=== PATIENT | female | born 1970 | race Caucasian/White ===

== ENCOUNTER 2020-09-27 16:27 | Outpatient (CLI) | payer BC, SELFPAY ==
--- NOTE | ~2020-09-27 | MM_ITS ---
EXAMINATION: MM screening [facility] BI w sandra HISTORY: Screening mammogram TECHNIQUE: Craniocaudal and mediolateral oblique 3-D tomosynthesis images were obtained and synthetic 2-D images were generated. CAD analysis was submitted and interpreted. COMPARISON: 08/27/2018 bilateral digital screening mammogram 01/29/2017 diagnostic left digital mammogram 02/02/2017 bilateral digital screening mammogram BREAST PARENCHYMAL COMPOSITION: There are scattered areas of fibroglandular density. FINDINGS: There is no evidence of suspicious mass, calcification, or architectural distortion to sugg est malignancy in either breast. There has been no suspicious interval change. IMPRESSION: 1. No mammographic evidence of malignancy. 2. Recommend routine screening mammography in one year. BI-RADS Category 1: Negative Reviewed, dictated and finalized at location A. TESTER
== END 2020-09-27 16:28 | disposition home or self-care (01) ==
LOC: ANHIMG 16:31
PROVIDERS: PCP Family Medicine; Visit Provider Nurse Practitioner
DX: Z12.31 Encounter for screening mammogram for malignant neoplasm of breast (principal)
CPT/HCPCS: 77063; 77067

== ENCOUNTER 2021-07-26 00:26 | Day surgery (SDC) | payer BC, SELFPAY ==
[2021-07-16 10:56] VITALS: BMI 32.3
[2021-07-26 08:39] VITALS: BP 146/92; PULSE 90; RESP 20; TEMP 36.1; O2SAT 99; BMI 31.6
[2021-07-26] MEDS: LACTATED RINGERS 1,000 ML 150 ML IV CONT (08:49)
--- NOTE | 2021-07-26 08:51 | SUR.PREOP ---
pt asked to provide a urine sample for a test. pt refused. pt states she had a tubal ligation and ablation and is currently on her period and refuses to provide specimen. anesthesia aware.
--- NOTE | 2021-07-26 08:54 | WPDANESEPPF ---
Anes - Initial Pre Proc Eval Procedure: Operation Date: 07/26/21 09:30 Proposed Procedures p Screening Colonoscopy - Yong Winkler MD Date/Time: 07/26/21 08:54 Surgeon: Yong Winkler MD Pre Op Diagnosis: neoplasm screening, family hx colon CA Patient Data Age: 51 Gender: F Height: 1.68 m Weight: 88.9 kg Last Vital Signs Temp 36.1 C L 07/26/21 08:39 Pulse 90 07/26/21 08:39 Resp 20 07/26/21 08:39 BP 146/92 H 07/26/21 08:39 Pulse Ox 99 07/26/21 08:39 Allergies Allergy/AdvReac Type Severity Reaction Status Date / Time Sulfa (Sulfonamide Allergy Unknown Unknown Verified 07/26/21 08:38 Antibiotics) Home Medications Medication Instructions Recorded Confirmed Type diclofenac sodium 1 % topical gel 2 g TOPICAL BID #100 g 07/19/21 07/26/21 Rx meloxicam 15 mg tablet 15 mg PO DAILY #30 tablet 07/19/21 07/26/21 Rx Patient hx anesthesia problems: none Family hx anesthesia problems: none Results Review: All pre-operative results and documents have been reviewed as part of the pre-operative evaluation. [facility] Past Medical History Medical History (Updated 07/26/21 @ 08:55 by Tomasz Tamayo MD) Dyslipidemia Family history of malignant neoplasm of colon Ganglion cyst Obesity Prediabetes Surgical History Surgical History (Updated 07/26/21 @ 08:55 by Tomasz Tamayo MD) History of tubal ligation Family History Family History Sibling Carcinoma of colon Other Diabetes mellitus Family history of multiple sclerosis Family history of rheumatoid arthritis Social History Social History Smoking status: Never smoker Alcohol intake: current Alcohol use details: 2-3 drinks per month Substance use: never Substance use type: does not use Living arrangements: with family Spiritual care concerns: No Anes - Eval Final PreProcedure Day of Procedure 07/26/21 08:54 Patient weight: obese Heart: regular rate and rhythm Lungs: clear to auscultation Airway: Mallampati scale class II Neurological: alert and oriented Last oral intake: >/= 8 hours ASA classification: II Emergent: no Anesthetic plan: proceed Anesthesia type and monitoring: general GIVS and standard monitoring Results Review: All pre-operative results and documents have been reviewed as part of the pre-operative evaluation. Informed Consent: The patient's anesthetic plan and its attendant risks and benefits were discussed with the patient/family/POA. Questions were solicited and answers provided to the satisfaction of the patient/family/POA.
--- NOTE | 2021-07-26 09:05 | WPDGICN ---
Assessment and Plan Assessment and plan (1) Family history of malignant neoplasm of colon: Code(s): Z80.0 - Family history of malignant neoplasm of digestive organs Status: Acute Assessment and Plan: patient has a family history of colon cancer in her brother and aunt in several cousins. Her father has had colon polyps. Plan is for patient has screening colonoscopy now and at least a 5 year intervals in the future. GI Consult Note Consult date/time: 07/26/21 09:05 HPI: Kendal Mulligan is a 51 year old female Presents for screening colonoscopy. Patient's current weight appetite bowel movements are normal. She denies abdominal pain. She has had no bleeding. Family history is significant her brother has colon cancer. Also an aunt and 2 cousins. Patient's father has had colon polyps. Patient presents today for neoplasia screening. Review of Systems Review of Systems: All systems reviewed & are unremarkable except as noted in HPI and below PMFSH Past Medical History Medical History (Updated 07/26/21 @ 08:55 by Tomasz Tamayo MD) Dyslipidemia Family history of malignant neoplasm of colon Ganglion cyst Obesity Prediabetes Surgical History Surgical History (Updated 07/26/21 @ 08:55 by Tomasz Tamayo MD) History of tubal ligation Family History Family History Sibling Carcinoma of colon Other Diabetes mellitus Family history of multiple sclerosis Family history of rheumatoid arthritis Social History Social History Smoking status: Never smoker Alcohol intake: current Alcohol use details: 2-3 drinks per month Substance use: never Substance use type: does not use Living arrangements: with family Spiritual care concerns: No Meds Home Medications and Allergies Home Medications Medication Instructions Recorded Confirmed Type diclofenac sodium 1 % topical gel 2 g TOPICAL BID #100 g 07/19/21 07/26/21 Rx meloxicam 15 mg tablet 15 mg PO DAILY #30 tablet 07/19/21 07/26/21 Rx Allergies Allergy/AdvReac Type Severity Reaction Status Date / Time Sulfa (Sulfonamide Allergy Unknown Unknown Verified 07/26/21 08:38 Antibiotics) Vital Signs Vital Signs - 24 hr 07/26/21 08:39 Temperature 97.0 F L Pulse Rate 90 Respiratory Rate 20 Blood Pressure 146/92 H Pulse Oximetry 99 Exam Narrative: Physical exam reveals patient to be alert. Vital signs stable. HEENT exam is unremarkable. Patient is anicteric. Lungs are clear to auscultation and percussion. Heart is without murmur or extra sounds. Abdominal exam bowel sounds are present soft nontender with no organomegaly. Digital external rectal exam is normal
[2021-07-26] MEDS: ONDANSETRON INJ 4 MG/2 ML VIAL IV PUSH (09:08)
[2021-07-26 09:30] VITALS: BP 122/80; PULSE 100; RESP 14; O2SAT 100
[2021-07-26 09:40] VITALS: BP 143/86; PULSE 88; RESP 18; O2SAT 100
[2021-07-26 09:46] VITALS: BP 140/92; PULSE 86; RESP 20; O2SAT 100
== END 2021-07-26 10:02 | disposition home or self-care (01) ==
PROVIDERS: PCP Family Medicine; Visit Provider Internal Medicine Gastroenterology
PROC: 0DJD8ZZ Inspection of Lower Intestinal Tract, Via Natural or Artificial Opening Endoscopic (ICD-10-PCS; CPT 45378; principal; 2021-07-26 09:30)
DX: Z12.11 Encounter for screening for malignant neoplasm of colon (principal); Z80.0 Family history of malignant neoplasm of digestive organs; K64.8 Other hemorrhoids; E78.5 Hyperlipidemia, unspecified; R73.03 Prediabetes; E66.9 Obesity, unspecified; Z68.31 Body mass index [BMI] 31.0-31.9, adult
CPT/HCPCS: 45378; J2405; J2704; J7120

== ENCOUNTER 2021-10-03 13:22 | Outpatient (CLI) | payer BC, SELFPAY ==
--- NOTE | ~2021-10-03 | MM_ITS ---
EXAMINATION: MM screening megha BI w sandra HISTORY: Screening TECHNIQUE: Craniocaudal and mediolateral oblique 3-D tomosynthesis images were obtained and synthetic 2-D images were generated. CAD analysis was submitted and interpreted. COMPARISON: Comparison to multiple prior studies sequentially, with oldest reviewed study dated 05/17. BREAST PARENCHYMAL COMPOSITION: There are scattered areas of fibroglandular density. FINDINGS: There is no evidence of suspicious mass, calcification, or architectural distortion to sugg est malignancy in either breast. There has been no suspicious interval change. IMPRESSION: 1. No mammographic evidence of malignancy. 2. Recommend routine screening mammography in one year. BI-RADS Category 1: Negative Reviewed, dictated and finalized at location A. ITTEE MEMBER
== END 2021-10-03 13:23 | disposition home or self-care (01) ==
LOC: ANHIMG 13:23
PROVIDERS: PCP Family Medicine; Visit Provider Obstetrics & Gynecology Gynecology
DX: Z12.31 Encounter for screening mammogram for malignant neoplasm of breast (principal)
CPT/HCPCS: 77063; 77067

== ENCOUNTER 2021-10-03 13:55 | Outpatient (CLI) | payer BC, SELFPAY ==
--- NOTE | ~2021-10-03 | MR_ITS ---
EXAMINATION: MR thoracic spine wo con EXAM DATE: 10/03/2021 16:08 INDICATION: M54.6 - Pain in thoracic spine TECHNIQUE: Multi-sequential, multiplanar MR images of the thoracic spine were obtained without contra st. Sagittal T1, T2, T2 fat saturation, axial T2 weighted images reviewed. There are no prior studie s for comparison. FINDINGS: There is mild to moderate thoracic facet arthropathy. There is mild thoracic disc disease. The thoracic neural foramen and central canal are widely patent. The spinal cord signal intensity and intrinsic morphology is normal. There are no suspicious marrow signal abnormalities. The vertebral b odies are aligned in the AP dimension. Paraspinal soft tissue is unremarkable. IMPRESSION: Mild to moderate thoracic facet arthropathy, mild disc disease. Reviewed, dictated and finalized at location G. HER DRESSER
== END 2021-10-03 13:56 | disposition home or self-care (01) ==
LOC: ANHIMG 14:04
PROVIDERS: PCP Family Medicine; Visit Provider Nurse Practitioner
DX: M54.6 Pain in thoracic spine (principal); M12.88 Other specific arthropathies, not elsewhere classified, other specified site; M51.84 Other intervertebral disc disorders, thoracic region
CPT/HCPCS: 72146

== ENCOUNTER 2022-04-23 08:39 | Outpatient (CLI) | payer BC, SELFPAY ==
[2022-04-23 18:57] LABS: Alanine Aminotransferase 14 U/L (6-35); Albumin Level 4.6 g/dL (3.5-5.1); Alkaline Phosphatase 85 U/L (38-126); Anion Gap 14 mmol/L (8-16); Aspartate Amino Transferase 27 U/L (14-36); Bilirubin,Total 0.5 mg/dL (0.2-1.3); Blood Urea Nitrogen 13 mg/dL (7-17); Calcium 9.1 mg/dL (8.4-10.2); Carbon Dioxide 26 mmol/L (22-30); Chloride 99 mmol/L (98-107); Cholesterol 238 mg/dL (0-200); Estimated Glomerular Filt Rate > 60; Glucose 83 mg/dL (65-110); HDL Direct 60 mg/dL; Potassium 4.2 mmol/L (3.4-5.0); Sodium 139 mmol/L (137-145); Triglycerides 85 mg/dL (<150)
[2022-04-23 19:07] LABS: LDL Cholesterol Direct 129 mg/dL
[2022-04-23 19:42] LABS: Basophils Percent Auto 0.5 % (0.2-1.2); Eosinophils Absolute Auto 0.1 K/mm3 (0-0.3); Eosinophils Percent Auto 1.6 % (0-4.4); Hematocrit 40.7 % (37.0-47.0); Hemoglobin 13.1 g/dL (12.0-15.0); Immature Granulocyte Absolute 0.01 K/mm3 (0.00-0.031); Immature Granulocyte Percent A 0.2 % (0-0.5); Lymphocytes Absolute Auto 0.81 K/mm3 (0.9-3.2); Lymphocytes Percent Auto 13.3 % (18.3-44.2); Mean Corpuscular HGB Conc 32.2 g/dl (32-36); Mean Corpuscular Hemoglobin 29.6 pg (26-34); Mean Corpuscular Volume 91.9 fl (80-100); Mean Platelet Volume 11.4 fl (7.4-10.4); Monocytes Absolute Auto 0.4 K/mm3 (0.1-0.6); Monocytes Percent Auto 6.6 % (2.6-8.5); Neutrophils Absolute Auto 4.7 K/mm3 (1.3-6.7); Neutrophils Percent Auto 77.8 % (45.5-73.1); Platelet Count Result 296 k/mm3 (150-375); Red Blood Count 4.43 M/mm3 (4.2-5.4); Red Cell Distribution Width 14.3 % (11.5-14.5); White Blood Count 6.1 K/mm3 (4.5-10.0)
[2022-04-23 19:59] LABS: Hemoglobin A1C 5.6 % (<5.7)
== END 2022-04-23 08:40 | disposition home or self-care (01) ==
LOC: ANHGOSHLAB 08:40
PROVIDERS: PCP Family Medicine; Visit Provider Nurse Practitioner
DX: E78.5 Hyperlipidemia, unspecified (principal); R73.03 Prediabetes
CPT/HCPCS: 36415; 80053; 80061; 83036; 85025

== ENCOUNTER 2023-03-05 15:48 | Outpatient (CLI) | payer BC, SELFPAY ==
--- NOTE | ~2023-03-05 | MM_ITS ---
EXAMINATION: MM screening [facility] BI w sandra HISTORY: Screening TECHNIQUE: Craniocaudal and mediolateral oblique 3-D tomosynthesis images were obtained and synthetic 2-D images were generated. CAD analysis was submitted and interpreted. COMPARISON: Comparison to multiple prior studies sequentially, with oldest reviewed study dated 05/17. BREAST PARENCHYMAL COMPOSITION: There are scattered areas of fibroglandular density. FINDINGS: There is no evidence of suspicious mass, calcification, or architectural distortion to sugg est malignancy in either breast. There has been no suspicious interval change. IMPRESSION: 1. No mammographic evidence of malignancy. 2. Recommend routine screening mammography in one year. BI-RADS Category 1: Negative Reviewed, dictated and finalized at location A.
== END 2023-03-05 15:49 | disposition home or self-care (01) ==
PROVIDERS: PCP Family Medicine; Visit Provider Nurse Practitioner
DX: Z12.31 Encounter for screening mammogram for malignant neoplasm of breast (principal)
CPT/HCPCS: 77063; 77067

== ENCOUNTER 2024-07-21 16:10 | Outpatient (CLI) | payer BC, SELFPAY ==
--- NOTE | ~2024-07-21 | MM_ITS ---
EXAMINATION: MM screening megha BI w sandra HISTORY: Screening TECHNIQUE: Craniocaudal and mediolateral oblique 3-D tomosynthesis images were obtained and synthetic 2-D images were generated. CAD analysis was submitted and interpreted. COMPARISON: Comparison to multiple prior studies sequentially, with oldest reviewed study dated 04/2017. BREAST PARENCHYMAL COMPOSITION: Not dense: There are scattered areas of fibroglandular density. FINDINGS: There is a new cluster of pleomorphic calcifications in the lower inner quadrant of the rig ht breast, anterior third. The left breast is stable without evidence for malignancy. IMPRESSION: 1. New cluster of pleomorphic right breast calcifications. 2. Magnification views are recommended. BI-RADS Category 0: Incomplete: Needs additional imaging evaluation. Reviewed, dictated and finalized at location B. OPERATOR
== END 2024-07-21 16:11 | disposition home or self-care (01) ==
PROVIDERS: PCP Family Medicine; Visit Provider Advanced Practice Midwife
DX: Z12.31 Encounter for screening mammogram for malignant neoplasm of breast (principal); R92.8 Other abnormal and inconclusive findings on diagnostic imaging of breast
CPT/HCPCS: 77063; 77067

== ENCOUNTER 2024-07-29 10:43 | Outpatient (CLI) | payer BC, SELFPAY ==
--- NOTE | ~2024-07-29 | MM_ITS ---
EXAMINATION: MM diagnostic megha RT w sandra HISTORY: Follow-up right breast calcifications TECHNIQUE: Additional 3-D tomosynthesis images of the right breast were performed and synthetic 2-D i mages were generated. CAD analysis was submitted and interpreted. COMPARISON: Comparison to multiple prior studies sequentially, with oldest reviewed study dated 08/27. BREAST PARENCHYMAL COMPOSITION: Not dense: There are scattered areas of fibroglandular density. FINDINGS: There is a cluster of indeterminate calcifications in the central medial aspect of the righ t breast which are likely benign. There are no suspicious masses or architectural distortion. IMPRESSION: 1. Probable benign cluster of right breast calcifications medial aspect of the right breast centrally . 2. Recommend 6 month follow-up diagnostic right mammogram BI-RADS category 3, probably benign findings. Reviewed, dictated and finalized at location B. OR QA AUTOMATION ENGINEER IMPRESSION: 1. Probable benign cluster of right breast calcifications medial aspect of the right breast centrally. 2. Recommend 6 month follow-up diagnostic right mammogram BI-RADS category 3, probably benign findings.
== END 2024-07-29 10:44 | disposition home or self-care (01) ==
LOC: ANHIMG 10:49
PROVIDERS: PCP Family Medicine; Visit Provider Obstetrics & Gynecology Gynecology
DX: N63.0 Unspecified lump in unspecified breast (principal); R92.8 Other abnormal and inconclusive findings on diagnostic imaging of breast
CPT/HCPCS: 77061; 77065; G0279

== ENCOUNTER 2025-02-01 10:46 | Outpatient (CLI) | payer BC, SELFPAY ==
--- NOTE | ~2025-02-01 | MM_ITS ---
EXAMINATION: MM diagnostic megha RT w sandra HISTORY: Follow-up right breast calcifications TECHNIQUE: Additional 3-D tomosynthesis images of the right breast were performed and synthetic 2-D i mages were generated. CAD analysis was submitted and interpreted. COMPARISON: Comparison to multiple prior studies sequentially, with oldest reviewed study dated 08/27. BREAST PARENCHYMAL COMPOSITION: Not dense: There are scattered areas of fibroglandular density. FINDINGS: There are increasing number and density of pleomorphic calcifications centered in the lower inner quadrant of the right breast, anterior-middle depth. There are no suspicious masses or archite ctural distortion. IMPRESSION: 1. Developing cluster of pleomorphic right breast calcifications, lower inner quadrant, anterior-midd le depth. 2. Stereotactic right breast biopsy recommended. BI-RADS category 4, suspicious findings. Reviewed, dictated and finalized at location A. IMPRESSION: 1. Developing cluster of pleomorphic right breast calcifications, lower inner q uadrant, anterior-middle depth. 2. Stereotactic right breast biopsy recommended. BI-RADS category 4, suspicious findings.
--- OUTSIDE RECORDS SUMMARY | 2025-02-01 12:31 | XMS_ITS | Clinical Summary ---
Author Organization [facility] Address [address] [place] [address] Care Team Providers Care Lobster Man Name Role Phone Ashely Lopez NP Primary Care Provider [phone] Allergies Active Allergy Reactions Criticality Noted Date Comments Sulfanilamide Hives Medium Medications cetirizine (ZyrTEC) 10 mg tablet Take 10 mg by mouth daily Active acyclovir (ZOVIRAX) 200 mg capsule Take by mouth daily as needed Active cefadroxil (DURICEF) 500 mg capsule Take 1 capsule (500 mg total) by mouth 2 (two) times a day 14 capsule 2 Active HYDROcodone-acetami nophen (NORCO) 5-325 mg per tabletIndications:P ain Take 1 tablet by mouth every 6 (six) hours as needed for pain 30 tablet 2 Active ondansetron ODT (ZOFRAN-ODT) 4 mg disintegrating tablet Take 1 tablet (4 mg total) by mouth every 8 (eight) hours as needed for nausea or vomiting 20 tablet 1 2 Active Surgical History Surgery Date Site/Laterality Comments TUBAL LIGATION 2003 Bilateral tubal ligation ABLATION uterine in office under local GANGLION CYST EXCISION Left wrist Medical History Medical History Date Comments Hx Other Medical 2011 Stress Fracture Left hip PONV (postoperative nausea and vomiting) Motion sickness Allergic rhinitis Chronic pain disorder neck and s houlders Herpes Family History Medical History Relation Name Comments Diabetes Other Family history of Diabetes mellitus; Multiple sclerosis Other Family hi story of Multiple sclerosis; Rheum arthritis Other Family histo ry of Rheumatoid arthritis; Relation Name Status Comments Other Social History Tobacco Use Types Packs/Day Years Used Date Smoking Tobacco: Never Tobacco Cessation:Counseling Given: Not Answered AUDIT-C Answer Date Recorded Q1: How often do you have a drink containing alc ohol? Monthly or less 05/02/2022 Q2: How many drinks containi ng alcohol do you have on a typical day when you are drinking? 1 or 2 05/02/2022 Q3: How often do you have si x or more drinks on one occasion? Never 05/02/2022 Comments Unknown Sex and Gender Information Value Date Recorded Sex Assigned at Not on file Legal Sex Female 11:01 AM [employer] Gender Identity Female 05/05/2022 7:41 AM CDT Sexual Orientation Not on file Obstetrics History Last Filed Vital Signs Vital Sign Reading Time Taken Comments Blood Pressure 123/88 05/08/2022 3:15 PM CDT Pulse 80 05/08/2022 3:15 PM CDT Temperature 36.4 C (97.5 F) 05/08/2022 1:30 PM CDT Respiratory Rate 16 05/08/2022 3:00 PM CDT Oxygen Saturation 90% 05/08/2022 3:15 PM CDT Inhaled Oxygen Concentration - - Weight 80.3 kg (177 lb) 05/08/2022 7:00 AM CDT Height 167.6 cm (5' 6) 05/08/2022 7:00 AM CDT Body Mass Index 28.57 05/08/2022 7:00 AM CDT Plan of Treatment Health Maintenance Due Date Last Done Comments Breast Cancer Screening-Mammogram 1972 Cervical Cancer Screening 1972 Colon Cancer Screening-Colonoscopy 1972 Depression Screening 1972 Hepatitis C Screening 1972 DTaP/Tdap/Td Vaccine (1 - Tdap) 1983 Hepatitis B Screening 1990 Regular Well Visit/Exam 18-64 1990 Zoster Vaccine (1 of 2) 2022 Covid-19 Vaccine (2 - 2023-2 5 season) 2024 10/21/2020 Influenza Vaccine (Season Ended) 2025 Pneumococcal vaccine <65 Aged Out No longer eligible based on patient's age to complete this topic [place] [employer] [employer] Care Teams Lobster Man Relationship Specialty Start Date End Date Ashely Lopez NP PCP - General Nurse Practitioner 04/25/22
--- OUTSIDE RECORDS SUMMARY | 2025-02-01 12:31 | XMS_ITS | Continuity of Care Document ---
Author Organization [facility] Address [address] [place] [address] Phone Care Team Providers Care Ceiling Installer Name Role Phone Olive Calero NP Unavailable Unavailable Allergies, Adverse Reactions, Alerts Substance Reaction Status Criticality Penicillins Trouble Breathing Active No Informa tion Medications Medication Instructions Dosage Effective Dates (start - stop) Status Comments Strattera 40 mg capsule take 1 capsule b y oral route every day in the morning 40 MG - Active Xanax 1 mg tablet take 1 tablet by ora l route nightly - Active trazodone 150 mg tablet take 1 tablet by oral route every bedtime after meals 150 MG - Active omeprazole 40 mg capsule,delayed release take 1 capsule by oral route 2 times every day before a meal 40 MG - Active cyclobenzaprine 10 mg tablet take 1 (10MG) by Oral route 3 times every day 10 MG - Active [place] Thyroid 90 mg tablet take 1 tablet by oral route every day 90 MG - Active fluconazole 150 mg tablet take 1 tablet by oral route once every 3 days - Active olmesartan 20 mg tablet take 1 tablet by oral route every day 20 MG - Active VITAMIN D (ERGOCALCIFE 1.25 MG CAPS TAKE 1 CAPSULE BY MOUTH ONCE WEEKLY - Active Procedures Procedure Date Office Or Out Patient E/M Est- Low Foot Insert Molded To Patient Foot Foot Insert Molded To Patient Foot Office Or Out Patient E/M Est- Low Office Or Out Patient E&M New - Low Xray, Foot, Complete, 3 Views Office Or Out Patient E/M Est - High Mar Visit Complexity Diastolic BP 80-89mm Hg Systolic BP < 130mm Hg Gonadotropin; Follicle Stim Ho Estadiol;free Dir Danny Routine Venipunct/finger/heel Gonadotropin; Luteinizing Horm Thyroxine; Free Lipid Panel Thyroid Stim Hormone Triiodothyronine T3; Free Progesterone E&M Level Telemedicine- Moderate 2023 Destruct Malignant Lesion 1.1 To 2.0cm J Office Or Out Patient E&M New - Moderate Diastolic BP 90mm Hg Systolic BP 130 To 139mm Hg Agt-dna/rna; Gardnerella Vag-d Mellissa Urinalysis Dipstick tablet;wo Micro TRICHOMONAS VAGIN, DIR PROBE E & M Establish Patient High Thyroid Stim Hormone Routine Venipunct/finger/heel Triiodothyronine T3; Free Thyroxine; Free Office Or Out Patient E&M Est Moderate D Diastolic BP < 80mm Hg Systolic BP < 130mm Hg Brief behavioral assessment w/scoring Oc Office Or Out Patient E&M Est - High May Diastolic BP < 80mm Hg Systolic BP < 130mm Hg Routine Venipunct/finger/heel 2 General Health Panel Thyroxine; Free Outside Lab Triiodothyronine T3; Free Outside Lab Office Or Out Patient E&M Est- Moderate- high Outside Lab Office Or Out Patient E&M Est - Low Tangential Biopsy Skin Single 2 Tangential Biopsy Skin Ea Add 2 Level Iv-surg Path Gross/micro Office Or Out Patient E&M New - Moderate Xray, Chest 2 Views Office Or Out Patient E&M Est Moderate A Diastolic BP 90mm Hg Systolic BP 130 To 139mm Hg Preven Meds E&m Estab Pt; 40-64 Yrs Office Or Out Patient E&M Est Moderate A Diastolic BP 80-89mm Hg Systolic BP < 130mm Hg C-reactv Protein; High Sensiti 22 Amylase Routine Venipunct/finger/heel 2 Triiodothyronine T3; Free Cult Bact Urin; Id Add Samir/ki Outside Lab Lipase Urinalysis Dipstick Auto W/o Micro Nov- Lipid Panel General Health Panel Outside Lab Thyroxine; Free Calcifediol Office Or Out Patient E&M Est- Moderate- high Diastolic BP < 80mm Hg Systolic BP < 130mm Hg Urinalysis Dipstick Auto W/o Micro Apr- Cult Bact Urin; Id Add Samir/ki C-reactv Protein; High Sensiti Routine Venipunct/finger/heel 1 Complete Blood Count; Hgb/pltlt Automate d Comp Metabolic Panel Office Or Out Patient E&M Est- Moderate- high Diastolic BP 90mm Hg Systolic BP 130 To 139mm Hg Office Or Out Patient E&M Est- Moderate- high Diastolic BP 80-89mm Hg Systolic BP < 130mm Hg Thyroxine; Free Triiodothyronine T3; Free Thyroid Stim Hormone Routine Venipunct/finger/heel 0 Office Or Out Patient E&M Est- Moderate- high Diastolic BP < 80mm Hg Systolic BP < 130mm Hg Thyroglobulin Antib Microsomal Antib Ea Triiodothyronine T3; Free Complete Blood Count; Hgb/pltlt Automate d Thyroxine; Free Routine Venipunct/finger/heel 0 Calcifediol Iron Iron Binding Capacity Thyroid Stim Hormone Office Visit Established Moderate After Hours Service Cult Bact Urin; Id Add Samir/ki Urinalysis W/Micro Remove impacted Cerumen Irrigation Office Visit Established Moderate Diastolic BP 80-89mm Hg Systolic BP < 130mm Hg U/S, Thyroid Preven Meds E&m Estab Pt; 40-64 Yrs Diastolic BP 80-89mm Hg Systolic BP < 130mm Hg Lipid Panel Iron Iron Binding Capacity Thyroxine; Free Calcifediol Routine Venipunct/finger/heel 9 Triiodothyronine T3; Free General Health Panel Office Visit Established - Moderate-high Diastolic BP 90mm Hg Systolic BP 130 To 139mm Hg Office Visit Established Moderate Serv Req After Hrs Add To Basi 19 Diastolic BP 80-89mm Hg Systolic BP 130 To 139mm Hg Routine Venipunct/finger/heel 9 Triiodothyronine T3; Free Thyroglobulin Antib Microsomal Antib Ea Lipid Panel Thyroxine; Free General Health Panel Cytpth Cerv/vag; Manual Scrn-s 19 Preven Meds E&m Estab Pt; 40-64 Yrs Diastolic BP < 80mm Hg Systolic BP < 130mm Hg Office Visit Established - Moderate-high Diastolic BP 90mm Hg Systolic BP 140mm Hg Brief behavioral assessment w/scoring De Routine Venipunct/finger/heel 8 Thyroxine; Free Triiodothyronine T3; Free Office Visit Established - Moderate-high Diastolic BP < 80mm Hg Systolic BP 130 To 139mm Hg General Health Panel Office Visit Established - Moderate-high Diastolic BP 90mm Hg Systolic BP 140mm Hg Office Visit Established - Moderate-high Diastolic BP < 80mm Hg Systolic BP < 130mm Hg Routine Venipunct/finger/heel 8 Thyroxine; Free Thyroid Stim Hormone U/S, Thyroid Agt-dna/rna; Strep Group A-amp 18 Office Visit Established - Moderate-high Diastolic BP 80-89mm Hg Systolic BP < 130mm Hg Level Iv-surg Path Gross/micro 18 Shaving 1 Lesion Trunk; < 0.5 Cm 2017 Surgical Trays Office Visit Established - Low 18 Diastolic BP 80-89mm Hg Systolic BP < 130mm Hg Routine Venipunct/finger/heel 8 Triiodothyronine T3; Free Lipid Panel Hgb Glycated Thyroxine; Free Preven Meds E&m Estab Pt; 40-64 Yrs Diastolic BP 80-89mm Hg Systolic BP < 130mm Hg General Health Panel Office Visit Established - Moderate-high Diastolic BP 80-89mm Hg Systolic BP 130 To 139mm Hg Office Visit Established - Moderate-high Diastolic BP < 80mm Hg Systolic BP < 130mm Hg Routine Venipunct/finger/heel 7 Thyroxine; Free Thyroid Stim Hormone Triiodothyronine T3; Free Office Visit Established - Moderate-high Diastolic BP 80-89mm Hg Systolic BP < 130mm Hg Office Visit Established - Moderate-high Diastolic BP 80-89mm Hg Systolic BP < 130mm Hg Office Visit Established Moderate Diastolic BP 80-89mm Hg Systolic BP < 130mm Hg Routine Venipunct/finger/heel 7 C-reactv Protein; High Sensiti 17 Sed Rate Erythrocyte Non-autom 17 Complete Blood Count; Hgb/pltlt Automate d Office Visit Established - Moderate-high Diastolic BP < 80mm Hg Systolic BP < 130mm Hg Office Visit Established - Moderate-high Diastolic BP 80-89mm Hg Systolic BP 130 To 139mm Hg Urinalysis Dipstick/tablet; W/micro Cult Bact Urin; Id Add Samir/ki 16 Office Visit Established - Moderate-high Diastolic BP 90mm Hg Systolic BP < 130mm Hg Routine Venipunct/finger/heel 6 Sed Rate Erythrocyte Non-autom 16 Lipid Panel C-reactv Protein; High Sensiti 16 Iron Iron Binding Capacity Thyroxine; Free General Health Panel Triiodothyronine T3; Free Preven Meds E&m Estab Pt; 40-64 Yrs Office Visit Established - Low 16 Routine Venipunct/finger/heel 5 C-reactv Protein; High Sensiti 15 Heterophile Antib; Screening Complete Blood Count; Hgb/pltlt Automate d Comp Metabolic Panel Unlisted Misc Path Test Office Visit Established - Moderate-high Office Visit Established - Moderate-high Postop Followup Visit Included In Global Laparoscopy Total Hysterectomy 15 Laparoscopy Total Hysterectomy 15 Office Visit Established Moderate Smear Prim W/intrpt; Wet Mnt W 15 Tiss Exam Fungi Agt-dna/rna; Chlamydia Trach-a 15 Ultrasound Transvaginal Office Visit New - Moderate Infus Normal Saline Soln 1000 5 Intervenous Infusion Hydration Initial A Intro Needle/intracatheter Vei 15 Agt-dna/rna; Neisser Gonorrhea 15 Routine Venipunct/finger/heel 5 Thyroxine; Free Smear Prim W/intrpt; Wet Mnt W 15 Preven Meds E&m Estab Pt; 40-64 Yrs General Health Panel Tiss Exam Fungi Routine Venipunct/finger/heel 5 Lipid Panel Office Visit Established - Moderate-high Adacel 7IM Adminstration Inj. Immunization 1 Routine Venipunct/finger/heel 4 Basic Metabolic Panel Thyroxine; Free Thyroid Stim Hormone Complete Blood Count; Hgb/pltlt Automate d Cerv/vag Ca Screen Pelvic/anaya 14 Office Visit Established - Moderate-high Office Visit New - Moderate Routine Venipunct/finger/heel 3 Complete Blood Count; Hgb/pltlt Automate d Urinalysis Dipstick Auto W/o Micro As per patient privacy policy some of the clinical information may not be visible. Advance Directives Directive Yes / No Effective Date File Name No Information Encounters Encounter Description Practice Location Reason(s) For Visit Diagnoses Date Provider Providers Copied on Encounter Office Or Out Patient E/M [facility], [address], [facility], tel:[phone] [facility] Congenital rearfoot varusGastrocn emius equinus of left lower extremityMort on neuroma of right foot Oct- 5 Galilea Schaefer. [address], [place], [address], [place]. tel:[phone] Referring Provider: Nolan Guerrero, [address], [place], [address]. tel:[phone] Office Or Out Patient E/M [facility] [address] [place] [address], [address], tel:[phone] [facility] CMOC (chief complaint) Congenital rearfoot varusGastrocn emius equinus of left lower extremityGast rocnemius equinus of right lower extremityMort on neuroma of right foot 5 Galilea Schaefer. [address], [place], [address], . tel:[phone] Referring Provider: Nolan Guerrero, [address], [place], [address]. tel:[phone] Office Or Out Patient E&M [facility], [address] [place] [address], [facility], tel:[phone] [facility] R Foot Pain (chief complaint) Gastrocnemius equinus of right lower extremityGast rocnemius equinus of left lower extremityCong enital rearfoot varusMorton neuroma of right footPain in right foot 5 Campos Francisco. [address], [place], [place], [id number], [place]. tel:[phone] Referring Provider: Nolan Guerrero, [address], [place], [address]. tel:[phone] [facility], [address] [facility], [place], [facility], tel:[phone] [facility] Right foot pain 5 Campos Francisco. [address], [place], [place], [id number], [place]. tel:[phone] Referring Provider: Nolan Guerrero, [address], [place], [address]. tel:[phone] [facility], [address] [facility], [place], [facility], [place] tel:[phone] [facility] Memo No Information 4 Adilene Grant. [address], [place], [place], [id number], . tel:[phone] Office Or Out Patient E/M [facility], [address] [place] [address], [facility], tel:[phone] [facility] Memo *Review medications (chief complaint) DyslipidemiaA utoimmune hypothyroidis mMenopausal symptomsVulvo vaginal candidiasisEs sential hypertensionA DHD (attention deficit hyperactivity disorder), combined typeAnxiety, generalizedBo dy mass index (BMI) 31.0-31.9, adultEncounte r for screening for other disorder 4 Adilene Grant. [address], [id number], [place]. tel:[phone] Referring Provider: Juanita Lindsay, [address], [address]. tel:[phone], [facility], tel:[phone] [facility] *Telemedicine (chief complaint) ADHD (attention deficit hyperactivity disorder), combined typeEssential hypertensionA utoimmune hypothyroidis mMuscle spasticityPri kourtney insomnia 4 Adilene Grant. [address], [id number], [place]. tel:[phone] Referring Provider: Juanita Lindsay, [address], [address]. tel:[phone], [facility], tel:[phone] [facility] * (chief complaint) Basal cell carcinoma (BCC) of back 4 Leonard Lambert. [address], [place], [place], [id number]. tel:[phone] Referring Provider: Fausto Castillo, [address], [place], [address]. tel:[phone] Office Or Out Patient E&M [facility], [address], [facility], tel:[phone] [facility] *UTI (chief complaint)*Sea yoseph allergies (chief complaint) DysuriaVagina l itchingCutane ous candidiasisEn vironmental and seasonal allergiesBody mass index (BMI) 32.0-32.9, adultEncounte r for screening for other disorder 3 Barney Moore. [address], [place], [address], [place]. tel:[phone] Referring Provider: Teresa Corley, [address] [place], [address]. tel:[phone] [facility], [address] [place] [address], [address], [place] tel:[phone] [facility] *Telemedicine (chief complaint) Anxiety, generalizedGE RD without esophagitisEs sential hypertensionA DHD (attention deficit hyperactivity disorder), inattentive type 3 Adilene Grant. [address] [place] [address], [id number], [place]. tel:[phone] Referring Provider: Juanita Lindsay, [address], [address]. tel:[phone] [facility], [address], [address], [place] tel:[phone] [facility]o Autoimmune thyroiditis 2 Adilene Grant. [address], [id number], [place]. tel:[phone] Referring Provider: Juanita Lindsay, [address], [address]. tel:[phone] Office Or Out Patient E&M Est Moderate [facility], [address], [address], tel:[phone] [facility] *Med Review (chief complaint) ADHD (attention deficit hyperactivity disorder), inattentive typeBody mass index (BMI) 31.0-31.9, adultEncounte r for screening for other disorder 2 Adilene Grant. [address], [id number], [place]. tel:[phone] Referring Provider: Juanita Lindsay, [address], [address]. tel:[phone], [address], [place] tel:[phone] [facility] Autoimmune hypothyroidis m 2 Adilene Grant. [address], [id number], [place]. tel:[phone] Office Or Out Patient E&M Est - High [facility], [address], [facility], [place] tel:[phone] [facility] *Medication Review (chief complaint) Seasonal affective disorderGener alized anxiety disorderPsych ophysiologic insomniaADHD (attention deficit hyperactivity disorder), combined typeAutoimmun e hypothyroidis mBody mass index (BMI) 31.0-31.9, adultEncounte r for screening for other disorder 2 Adilene Grant. [address], [id number], [place]. tel:[phone] Referring Provider: Juanita Lindsay, [address], [address]. tel:[phone] Office Or Out Patient E&M Est- Moderate-hig h [address], [facility], [place] tel:[phone] [facility] * (chief complaint) CheilitisSkin infection 2 Leonard Lambert. [address], [place], [place], [id number]. tel:[phone] Referring Provider: Fausto Castillo, [address], [place], [address]. tel:[phone] [facility], [address], [facility], [place] tel:[phone] [facility] No Information 2 Adileen Grant. [address], [id number], [place]. tel:[phone] Office Or Out Patient E&M Est - Low [facility], [address], [place], [address], tel:[phone] [facility] * (chief complaint) CheilitisNeop lasm of uncertain behavior of skin 2 Leonard Lambert. [address], [place], [place], [id number]. tel:[phone] Referring Provider: Fausto Castillo, [address], [place], [address]. tel:[phone] [facility], [address] [facility], [place], [address], [place] tel:[phone] [facility] Nevus of neck 2 Katerin Richmond. [address], [place], [place], [id number], [place]. tel:[phone] Referring Provider: Fausto Castillo, [address], [place], [address]. tel:[phone] Office Or Out Patient E&M New - Moderate [facility], [address] [facility], [place], [address], [place] tel:[phone] [facility] * (chief complaint)* (chief complaint) Seborrheic keratosesSola r lentigoMultip le benign melanocytic neviCherry angiomaCheili tis 2 Leonard Lambert. [address], [place], [place], [id number]. tel:[phone] Referring Provider: Fausto Castillo, [address], [place], [address]. tel:[phone] Office Or Out Patient E&M Est Moderate [facility], [address], [place], [facility], [place] tel:[phone] [facility] *Cough (chief complaint) CoughUnspecif ied acute lower respiratory infectionBody mass index (BMI) 32.0-32.9, adultEncounte r for screening for other disorder 2 Gisela Cobb. [address], [place], [place], [id number], [place]. tel:[phone] Referring Provider: Reza Higgins, [address] [facility], [place], [address]. tel:[phone] Preven Meds E&m Estab Pt; 40-64 Yrs [address], [address], tel:[phone] [facility] *Physical (chief complaint) Annual physical examLLQ abdominal painHypothyro idism, unspecified typeVitamin D deficiencyMil d intermittent asthma, unspecified whether complicatedEs sential hypertensionS easonal affective disorderPrima ry insomniaGener alized anxiety disorderHyper lipidemia, unspecified hyperlipidemi a typeBody mass index (BMI) 32.0-32.9, adultEncounte r for screening for other disorder Nov- 2 Adilene Grant. [address], [id number], [place]. tel:[phone] Referring Provider: Juanita Lindsay, [address], [address]. tel:[phone], [facility], tel:[phone] [facility] Autoimmune hypothyroidis m 1 Adilene Grant. [address], [id number], [place]. tel:[phone] Office Or Out Patient E&M Est- Moderate-hig h [facility], [address], [address], [place] tel:[phone] [facility] *Migraines/hea daches (chief complaint) Generalized abdominal painConstipat ion, unspecified constipation typeBody mass index (BMI) 33.0-33.9, adultEncounte r for screening for other disorder Apr- 1 Adilene Grant. [address], [id number], [place]. tel:[phone] Referring Provider: Juanita Lindsay, [address], [address]. tel:[phone] Office Or Out Patient E&M Est- Moderate-hig h [facility], [address], [facility], tel:[phone] [facility] *Lump (chief complaint) Skin infectionNaus eaVulvovagina l candidiasisBo dy mass index (BMI) 31.0-31.9, adultEncounte r for screening for other disorder 1 Adilene Grant. [address], [id number], [place]. tel:[phone] Referring Provider: Juanita Lindsay, [address], [address]. tel:[phone] Office Or Out Patient E&M Est- Moderate-hig h [facility], [address], [facility], tel:[phone] [facility] *Medication refill (chief complaint) Autoimmune hypothyroidis mEssential hypertensionP rimary insomniaGener alized anxiety disorderAbnor mal weight gainBody mass index (BMI) 34.0-34.9, adultEncounte r for screening for other disorder 0 Adilene Grant. [address], [id number], . tel:[phone] Referring Provider: Juanita Lindsay, [address], [address]. tel:[phone] Office Or Out Patient E&M Est- Moderate-hig h [facility], [address], [facility], tel:[phone] [facility] *Recheck medications (chief complaint) Autoimmune hypothyroidis mPrimary insomniaVitam in deficiencyEss ential hypertensionS ituational anxietyMicroc ytic anemiaBody mass index (BMI) 32.0-32.9, adultEncounte r for screening for other disorder 0 Adilene Grant. [address], [id number], [place]. tel:[phone] Referring Provider: Juanita Lindsay, [address], [address]. tel:[phone] Office Visit Established [facility], [address] [place] [address], [address], [place] tel:[phone] [facility] * dysuria (chief complaint) DysuriaUrinar y urgencyBody mass index (BMI) 34.0-34.9, adult 0 Mele Hanson. [address], [place], [place], [id number], [place]. tel:[phone] Referring Provider: Margie Ch, [address], [place], [address]. tel:[phone] Office Visit Established [facility], [address] [place] [address], [address], [place] tel:[phone] [facility] *Ear Infection (chief complaint) Bilateral impacted cerumenAcute otitis media, unspecified otitis media typeAcute non-recurrent maxillary sinusitisBody mass index (BMI) 33.0-33.9, adultEncounte r for screening for other disorder 9 Jim Berry . [address], [address] [place], [place], [id number], [place]. tel:[phone] Referring Provider: Jamal Fernandez, [address] [place], [address]. tel:[phone] [facility], [address] [place] [address], [address], [place] tel:[phone] [facility] Nontoxic single thyroid nodule 9 Adilene Grant. [address], [id number], [place]. tel:[phone] Referring Provider: Juanita Lindsay, [address], [address]. tel:[phone] Preven Meds E&m Estab Pt; 40-64 Yrs [facility], [address] [place] [address], [address], tel:[phone] [facility] *physical (chief complaint) Annual physical examHashimoto 's thyroiditisOt her dysphagiaEsse ntial hypertensionP rimary insomniaAnxie ty attackMajor depressive disorder, recurrent, moderatePlant ar wartBody mass index (BMI) 33.0-33.9, adultThyroid noduleEncount er for screening for other disorder 9 Adilene Grant. [address] [place], [place], [id number], [place]. tel:[phone] Referring Provider: Juanita Lindsay, [address], [address]. tel:[phone] Office Visit Established - Moderate-hig h [facility], [address] [place] [address], [facility], tel:[phone] [facility] * breathing problem (chief complaint) Acute viral bronchitisVir al URI with coughOther viral agents as the cause of diseases classified elsewhereBody mass index (BMI) 33.0-33.9, adultEncounte r for screening for other disorder Apr- 9 Peace Kim. [address], [place], [place], [id number], [place]. tel:[phone] Referring Provider: Julio Callejas, [address], [place], [address]. tel:[phone] Office Visit Established Moderate [facility], [address] [place] [address], [address], [place] [phone] [facility] *sinus infection (chief complaint) Acute maxillary sinusitis, recurrence not specifiedAcut e frontal sinusitis, recurrence not specifiedURI with cough and congestionEnc ounter for screening for other disorder Apr- 9 Jim Berry . [address], [address] [place] [place], [place], [id number], [place]. tel:[phone] Referring Provider: Jamal Fernandez, [address] [place], [address]. tel:[phone] Preven Meds E&m Estab Pt; 40-64 Yrs [facility], [address] [address], [facility], tel:[phone] [facility] Memo *physical (chief complaint) Annual physical examAcquired hypothyroidis mEssential hypertensionM ajor depressive disorder in partial remission, unspecified whether recurrentGene ralized anxiety disorderPrima ry insomniaFemal e pattern hair lossOther systemic lupus erythematosus with other organ involvementEn cntr for manufacturing design engineer exam (general) (routine) w/o abn findingsBody mass index (BMI) 34.0-34.9, adultEncounte r for screening for other disorder Adilene Grant. [address], [id number], . tel:[phone] Referring Provider: Juanita Lindsya, [address], [address]. tel:[phone] Office Visit Established - Moderate-hig h [facility], [address], [facility], tel:[phone] [facility] Memo F/U Hypothyroidism (chief complaint) Hypothyroidis m (acquired)Dep ression, major, recurrent, moderateInter trigoEssentia l hypertensionG eneralized anxiety disorderBody mass index (BMI) 34.0-34.9, adultEncounte r for screening for other disorder Adilene Grant. [address], [id number], [place]. tel:[phone] Referring Provider: Juanita Lindsay, [address], [address]. tel:[phone] Office Visit Established - Moderate-hig h [facility], [address], [facility], tel:[phone] [facility] Memo *Depression (chief complaint)*Hyp ertension (chief complaint) Severe episode of recurrent major depressive disorder, without psychotic featuresGener alized anxiety disorderMotor cycle accident, sequelaH/O repair of right rotator cuffElevated blood pressure reading in office with diagnosis of hypertensionE ncounter for screening for other disorder 8 Adilene Grant. [address], [id number], [place]. tel:[phone] Referring Provider: Juanita Lindsay, [address], [address]. tel:[phone] Office Visit Established - Moderate-hig h [facility], [address] [place] [address], [address], [place] tel:[phone] [facility] Memo *blood pressure (chief complaint) Essential hypertensionB brianna mass index (BMI) 34.0-34.9, adultEncounte r for screening for other disorder 8 Eleazar Ernandez. [address], [id number], [place]. tel:[phone] Referring Provider: Awais Hansen, [address], [address]. tel:[phone] Office Visit Established - Moderate-hig h [facility], [address] [place] [address], [address], [place] tel:[phone] [facility] Memo *Thyroid (chief complaint) Foreign body sensation in throatThyroid noduleHypothy roidism (acquired)Bod y mass index (BMI) 34.0-34.9, adultEncounte r for screening for other disorder 8 Odin Conde. [address] [place], [id number], [place]. tel:[phone] Referring Provider: Elton Ch, [address] [place], [address]. tel:[phone] [facility], [address] [place] [address], [address], [place] tel:[phone] [facility] Memo *Lab (chief complaint) Enlarged thyroid 8 Odin Conde. [address], [place], [place], [id number], [place]. tel:[phone] Referring Provider: Elton Ch, [address], [place], [address]. tel:[phone] [facility], [address] [facility], [place], [facility], tel:[phone] [facility] Nontoxic single thyroid nodule 8 [place] Elton. [address], [place], [place], [id number], [place]. tel:[phone] Referring Provider: Elton Ch, [address], [place], [address]. tel:[phone] Office Visit Established - Moderate-hig h [facility], [address] [place] [address], [facility], tel:[phone] [facility] Memo *Ear infection (chief complaint) Lymphadenopat hy of head and neckVomiting, intractabilit y of vomiting not specified, presence of nausea not specified, unspecified vomiting typeThyroid noduleBody mass index (BMI) 34.0-34.9, adultEncounte r for screening for other disorder 8 [facility]. [address], [place], [place], [id number], [place]. tel:[phone] Referring Provider: Elton Ch, [address], [place], [address]. tel:[phone] [facility], [address] [place] [address], [facility], tel:[phone] [facility] Other benign neoplasm of skin of left upper limb, including shoulder 8 Moon Callejas. [address] [place] [address], [id number], [place]. tel:[phone] Referring Provider: Júnior Causey, [address] [place] [address] [place] [address], [address]. tel:[phone] Office Visit Established - Low [facility], [address] [place] [address], [facility], [place] tel:[phone] [facility] Memo *lesion (chief complaint) Neoplasm of uncertain behavior of skinBody mass index (BMI) 33.0-33.9, adultEncounte r for screening for other disorder 8 Adilene Grant. [address], [id number], . tel:[phone] Referring Provider: Juanita Lindsay, [address], [address]. tel:[phone] Preven Meds E&m Estab Pt; 40-64 Yrs [address], [facility], tel:[phone] [facility] Memo *physical (chief complaint) Annual physical examLeft otitis media, unspecified otitis media typeHypothyro idism (acquired)Gen eralized anxiety disorderOther insomniaEczem a of external ear, unspecified lateralityBod y mass index (BMI) 33.0-33.9, adultEncounte r for screening for other disorder 8 Adilene Grant. [address], [id number], [place]. tel:[phone] Referring Provider: Juanita Lindsay, [address], [address]. tel:[phone] Office Visit Established - Moderate-hig h [facility], [address], [facility], tel:[phone] [facility] Memo *Bilateral ear pressure (chief complaint) Dermatitis of both ear canalsOtalgia of both earsBody mass index (BMI) 33.0-33.9, adultEncounte r for screening for other disorder 8 Eleazar Ernandez. [address], [id number], [place]. tel:[phone] Referring Provider: Awais Hansen, [address], [address]. tel:[phone] Office Visit Established - Moderate-hig h [facility], [address], [address], tel:[phone] [facility] Memo *Inner ear pain (chief complaint) Other chronic sinusitisSebo rrheic dermatitis of scalpOther eczemaBody mass index (BMI) 32.0-32.9, adultEncounte r for screening for other disorder 8 Adilene Grant. [address], [id number], [place]. tel:[phone] Referring Provider: Juanita Lindsay, [address], [address]. tel:[phone] Office Visit Established - Moderate-hig h [facility], [address], [facility], tel:[phone] [facility] Memo *Sick (chief complaint)* tenia cruris (chief complaint) Left otitis media, unspecified otitis media typeTinea crurisHypothy roidism (acquired)Bod y mass index (BMI) 33.0-33.9, adultEncounte r for screening for other disorder 7 Adilene rGant. [address], [id number], [place]. tel:[phone] Referring Provider: Juanita Lindsay, [address], [address]. tel:[phone] Office Visit Established - Moderate-hig h [facility], [address], [facility], tel:[phone] [facility] Memo *Follow up Medications (chief complaint) Other insomniaHypot hyroidism (acquired)Gen eralized anxiety disorderInjur y of right shoulder, initial encounterHome accidentFall in (into) shower or empty bathtub, initial encounterBody mass index (BMI) 33.0-33.9, adultEncounte r for screening for other disorder 7 Adilene Grant. [address], [id number], . tel:[phone] Referring Provider: Juanita Lindsay, [address], [address]. tel:[phone] Office Visit Established Moderate [facility], [address], [facility], tel:[phone] [facility]o *armpit pain (chief complaint) Left axillary painBody mass index (BMI) 33.0-33.9, adult 7 Adilene Grant. [address], [id number], [place]. tel:[phone] Referring Provider: Juanita Lindsay, [address], [address]. tel:[phone] Office Visit Established - Moderate-hig h [facility], [address], [facility], tel:[phone] [facility] Memo *F/U on infection (chief complaint) Pain in left axillaOther systemic lupus erythematosus with other organ involvementGe neralized anxiety disorderBody mass index (BMI) 33.0-33.9, adult 7 Adilene Grant. [address], [address] [place] [address], [place]. tel:[phone] Referring Provider: Juanita Lindsay, [address], [address]. tel:[phone] Office Visit Established - Moderate-hig h [facility], [address], [facility], tel:[phone] [facility]o *infection (chief complaint) Breast pain, leftNipple infectionBody mass index (BMI) 34.0-34.9, adult 7 Eleazar Ernandez. [address], [id number], [place]. tel:[phone] Referring Provider: Awais Hansen, [address], [address]. tel:[phone] Office Visit Established - Moderate-hig h [facility], [address], [address], tel:[phone] [facility] Memo *UTI (chief complaint) Abdominal pain, RLQBody mass index (BMI) 34.0-34.9, adultEncounte r for screening for other disorder Noe Ramires. [address], [place], [place], [id number], [place]. tel:[phone] Referring Provider: Ike Liu, [address], [place], [address]. tel:[phone] Preven Meds E&m Estab Pt; 40-64 Yrs [facility], [address], [facility], [place] tel:[phone] [facility] Memo *physical (chief complaint) Annual physical examHypothyro idism, unspecified typeGeneraliz ed anxiety disorderPsych ophysiologica l insomniaFamil y history of breast cancerSystemi c lupus erythematosus Intertrigo 6 Adilene Grant. [address], [id number], [place]. tel:[phone] Referring Provider: Juanita Lindsay, [address], [address]. tel:[phone] Office Visit Established - Moderate-hig h [facility], [address], [facility], tel:[phone] [facility] Memo *left lower quadrant abdominal pain (chief complaint) Chronic fatiguePersis tent feverLymphade nopathyCODING COMPLETE 5 Adilene Grant. [address], [id number], [place]. tel:[phone] Referring Provider: Juanita Lindsay, [address], [address]. tel:[phone] Office Visit Established - Moderate-hig h [facility], [address], [facility], [place] tel:[phone] [facility] Memo *anxiety (chief complaint) Generalized anxiety disorderAnxie ty attack 5 Adilene Grant. [address] [place], [place], [id number], [place]. tel:[phone] Referring Provider: Juanita Lindsay, [address] [place], [address]. tel:[phone] [facility], [address] [place] [address], [facility], [place] tel:[phone] [facility] Memo *Postop (chief complaint) Postoperative visit 5 Geeta Hernandes. [address], [place], [place], [id number], [place]. tel:[phone] Referring Provider: Cecilio Hansen, [address], [place], [address]. tel:[phone] [facility], [address] [place] [address], [facility], [place] tel:[phone] [facility] Memo No Information 5 Geeta Hernandes. [address], [place], [place], [id number], [place]. tel:[phone] Referring Provider: Cecilio Hansen, [address], [place], [address]. tel:[phone] [facility], [address] [place] [address], [facility], tel:[phone] [facility] [place] No Information 5 Nga Jackson. [address], [place], [place], [id number], [place]. tel:[phone] Referring Provider: Cecilio Hansen, [address], [place], [address]. tel:[phone] Office Visit Established Moderate [facility], [address] [place] [address], [address], tel:[phone] [facility] pre op (chief complaint) MenorrhagiaPI D (acute pelvic inflammatory disease)Pelvi c pain in female 5 Geeta Hernandes. [address], [place], [place], [id number], [place]. tel:[phone] Referring Provider: Cecilio Hansen, [address], [place], [address]. tel:[phone] Office Visit New - Moderate [facility], [address] [place] [address], [facility], [place] tel:[phone] [facility] Memo vaginal discharge/odor (chief complaint) Vaginal dischargePelv ic pain in femalePID (acute pelvic inflammatory disease)Leo rhagiaDehydra tion 5 Geeta Hernandes. [address], [place], [place], [id number], [place]. tel:[phone] Referring Provider: Cecilio Hansen, [address], [place], [address]. tel:[phone] Preven Meds E&m Estab Pt; 40-64 Yrs [facility], [address] [place] [address], [facility], tel:[phone] [facility] Memo *Annual physical (chief complaint) Annual physical examGeneraliz ed anxiety disorderPanic attackBacteri al vaginosisBact erial infection 5 Adilene Grant. [address], [id number], . tel:[phone] Referring Provider: Juanita Lindsay, [address], [address]. tel:[phone] Office Visit Established - Moderate-hig h [facility], [address] [place] [address], [facility], [place] tel:[phone] [facility] Memo * skin problem (chief complaint)*dep ression/anxiet y (chief complaint) Encounter for health maintenance examinationGe neralized anxiety disorderDerma titis 5 Adilene Grant. [address], [id number], [place]. tel:[phone] Referring Provider: Juanita Lindsay, [address], [address]. tel:[phone] Office Visit Established - Moderate-hig h [facility], [address], [place], [facility], tel:[phone] [facility] Memo establish care (chief complaint)phys ical (chief complaint)PMS (chief complaint) Vaccin For DtpInsomnia NecSLEHypothy roidism NosInsomnia NecVisit for gynecologic examinationPM S (premenstrual syndrome) 4 Adilene Grant. [address], [address] [place] [address], . tel:[phone] Referring Provider: Juanita Lindsay, [address], [address]. tel:[phone] Office Visit New - Moderate [facility], [address] [facility], [place], [facility], tel:[phone] [facility] GLEN negative lupus (chief complaint) Hypothyroidis m NosNeck PainJoint Pain-handCODI NG COMPLETE 3 Austaburke Junior. [address], [address] [place] [address], . tel:[phone] Referring Provider: Hussain Ruth, [facility] [place], [address]. tel:[phone] Family History Family Member Type Diagnosis Age At Onset Mother Problem (finding) [place] Mother Problem (finding) Maternal grandmother Problem (finding) cancer of colon Father Problem (finding) alcoholism Immunizations Vaccine Date Status Comments Tdap administered Source: [facility] Record Payers Payer name Insurance type Covered constitution party ID Silvano gill(sSamuel Grullon OA CI [id number] Social History Type Description Quantity Date Captured Comments Alcohol Use Details Unknown Caffeine Use Details Unknown Tobacco Use Status No Information Smoking Status No Information Sex Female Chief Complaint And Reason For Visit No Information Reason For Referral Reason For Referral No Information Plan Of Treatment Date Type Action Status Goal TSH. Due on due Goal Tdap due Goal Diabetes screeni ng. Due on due Goal Lipid panel. Due on due Goal Unhealthy drug u se screening. Due on due Goal Hepatitis C scre ening. Due on due Goal FIT-DNA. Due on due Goal Influenza vaccin e. Due on due Goal ECG. Due on due Goal FOBT. Due on due Goal Colonoscopy. Due on due Goal Mammogram. Due on due Goal PHQ9/Depr/Suicid e Rsk Assessment. Due on due Goal COVID-19 Vaccine . Due on due Goal FIT. Due on due Goal Td vaccine. Due on due Goal Zoster vaccine ( 1st). Due on due Goal COVID-19 Vaccine . Due on due Goal ECG. Due on due Goal Tdap due Goal Hepatitis C scre ening. Due on due Goal Td vaccine. Due on due Goal TSH. Due on due Goal Lipid panel. Due on due Goal Mammogram. Due on 0 due Goal Unhealthy drug u se screening. Due on due Goal Influenza vaccin e. Due on due Goal Colonoscopy. Due on due Goal FOBT. Due on due Goal Diabetes screeni ng. Due on due Goal FIT-DNA. Due on due Goal FIT. Due on due Goal PHQ9/Depr/Suicid e Rsk Assessment. Due on due Goal TSH. Due on due Goal Diabetes screeni ng. Due on due Goal FIT-DNA. Due on due Goal Zoster vaccine ( 1st). Due on due Goal Influenza vaccin e. Due on due Goal Td vaccine. Due on due Goal Colonoscopy. Due on due Goal Tdap due Goal Hepatitis C scre ening. Due on due Goal COVID-19 Vaccine . Due on due Goal Lipid panel. Due on due Goal FOBT. Due on due Goal Unhealthy drug u se screening. Due on due Goal Mammogram. Due on 0 due Goal ECG. Due on due Goal PHQ9/Depr/Suicid e Rsk Assessment. Due on due Goal FIT. Due on due Goal COVID-19 Vaccine . Due on due Goal Mammogram. Due on 0 due Goal Tdap due Goal Influenza vaccin e. Due on due Goal Colonoscopy. Due on due Goal Td vaccine. Due on due Goal FIT. Due on due Goal PHQ9/Depr/Suicid e Rsk Assessment. Due on due Goal FIT-DNA. Due on due Goal Unhealthy drug u se screening. Due on due Goal ECG. Due on due Goal FOBT. Due on due Goal Diabetes screeni ng. Due on due Goal TSH. Due on due Goal Hepatitis C scre ening. Due on due Goal Lipid panel. Due on 025 due Goal Diabetes screeni ng. Due on due Goal Td vaccine. Due on 24 due Goal Mammogram. Due on 0 due Goal Tdap due Goal Colonoscopy. Due on 024 due Goal PHQ9/Depr/Suicid e Rsk Assessment. Due on due Goal FIT. Due on due Goal FOBT. Due on due Goal COVID-19 Vaccine . Due on due Goal FIT-DNA. Due on due Goal ECG. Due on due Goal Influenza vaccin e. Due on due Goal Unhealthy drug u se screening. Due on due Goal Zoster vaccine ( ). Due on due Goal Hepatitis C scre ening. Due on due Goal FOBT. Due on due Goal ECG. Due on due Goal Colonoscopy. Due on 024 due Goal FIT-DNA. Due on due Goal TSH. Due on due Goal Hepatitis C scre ening. Due on due Goal FIT. Due on due Goal Diabetes screeni ng. Due on due Goal Tdap due Goal Mammogram. Due on due Goal Influenza vaccin e. Due on due Goal COVID-19 Vaccine . Due on due Goal PHQ9/Depr/Suicid e Rsk Assessment. Due on due Goal Lipid panel. Due on 023 due Goal Unhealthy drug u se screening. Due on due Goal FIT-DNA. Due on due Goal COVID-19 Vaccine . Due on due Goal Colonoscopy. Due on due Goal Lipid panel. Due on due Goal Hepatitis C scre ening. Due on due Goal ECG. Due on due Goal Tdap due Goal Influenza vaccin e. Due on due Goal PHQ9/Depr/Suicid e Rsk Assessment. Due on due Goal Diabetes screeni ng. Due on due Goal Mammogram. Due on due Goal FIT. Due on due Goal Unhealthy drug u se screening. Due on due Goal Zoster vaccine ( ). Due on due Goal FOBT. Due on due Goal TSH. Due on due Goal ECG. Due on due Goal Influenza vaccin e. Due on due Goal Tdap due Goal Lipid panel. Due on due Goal Hepatitis C scre ening. Due on due Goal Colonoscopy. Due on due Goal PHQ9/Depr/Suicid e Rsk Assessment. Due on due Goal TSH. Due on due Goal FOBT. Due on due Goal Unhealthy drug u se screening. Due on due Goal FIT. Due on due Goal Mammogram. Due on 0 due Goal COVID-19 Vaccine . Due on due Goal FIT-DNA. Due on due Goal Diabetes screeni ng. Due on due Goal Colonoscopy. Due on due Goal Unhealthy drug u se screening. Due on due Goal FIT. Due on due Goal Diabetes screeni ng. Due on due Goal Hepatitis C scre ening. Due on due Goal COVID-19 Vaccine . Due on due Goal FOBT. Due on due Goal Tdap due Goal ECG. Due on due Goal PHQ9/Depr/Suicid e Rsk Assessment. Due on due Goal Lipid panel. Due on 023 due Goal Mammogram. Due on 0 due Goal Zoster vaccine ( 1st). Due on due Goal Influenza vaccin e. Due on due Goal TSH. Due on due Goal FIT-DNA. Due on due Goal FIT-DNA (Cologua rd). Due on due Goal Mammogram. Due on 0 due Goal TSH. Due on due Goal FIT. Due on due Goal PHQ9/Depr/Suicid e Rsk Assessment. Due on due Goal COVID-19 Vaccine . Due on due Goal ECG. Due on due Goal Colonoscopy. Due on due Goal Lipid panel. Due on due Goal Tdap due Goal Influenza vaccin e. Due on due Goal FOBT. Due on due Goal Diabetes screeni ng. Due on due Goal Zoster vaccine ( 1st). Due on due Goal Colonoscopy. Due on due Goal FIT-DNA (Cologua rd). Due on due Goal FIT. Due on due Goal PHQ9/Depr/Suicid e Rsk Assessment. Due on due Goal TSH. Due on due Goal COVID-19 Vaccine . Due on due Goal Tdap due Goal Mammogram. Due on due Goal Influenza vaccin e. Due on due Goal FOBT. Due on due Goal ECG. Due on due Goal Lipid panel. Due on due Goal Diabetes screeni ng. Due on due Goal FIT. Due on due Goal Mammogram. Due on 0 due Goal FOBT. Due on due Goal Influenza vaccin e. Due on due Goal ECG. Due on due Goal FIT-DNA (Cologua rd). Due on due Goal Lipid panel. Due on due Goal Diabetes screeni ng. Due on due Goal Tdap due Goal PHQ9/Depr/Suicid e Rsk Assessment. Due on due Goal TSH. Due on due Goal COVID-19 Vaccine . Due on due Goal Colonoscopy. Due on due Goal ECG. Due on due Goal Influenza vaccin e. Due on due Goal COVID-19 Vaccine . Due on due Goal Mammogram. Due on 0 due Goal FIT. Due on due Goal PHQ9/Depr/Suicid e Rsk Assessment. Due on due Goal Tdap due Goal FOBT. Due on due Goal Diabetes screeni ng. Due on due Goal TSH. Due on due Goal Colonoscopy. Due on due Goal FIT-DNA (Cologua rd). Due on due Goal Lipid panel. Due on due Goal FIT-DNA (Cologua rd). Due on due Goal PHQ9/Depr/Suicid e Rsk Assessment. Due on due Goal Colonoscopy. Due on 022 due Goal Diabetes screeni ng. Due on due Goal Lipid panel. Due on 023 due Goal Tdap due Goal COVID-19 Vaccine . Due on due Goal Influenza vaccin e. Due on due Goal TSH. Due on due Goal Mammogram. Due on 0 due Goal FIT. Due on due Goal ECG. Due on due Goal FOBT. Due on due Goal FOBT. Due on due Goal Mammogram. Due on 0 due Goal COVID-19 Vaccine . Due on due Goal Diabetes screeni ng. Due on due Goal Influenza vaccin e. Due on due Goal Colonoscopy. Due on due Goal TSH. Due on due Goal Tdap due Goal Lipid panel. Due on due Goal ECG. Due on due Goal FIT. Due on due Goal PHQ9/Depr/Suicid e Rsk Assessment. Due on due Goal FIT-DNA (Cologua rd). Due on due Goal Mammogram. Due on 0 due Goal ECG. Due on due Goal Diabetes screeni ng. Due on due Goal PHQ9/Depr/Suicid e Rsk Assessment. Due on due Goal COVID-19 Vaccine . Due on due Goal FIT-DNA (Cologua rd). Due on due Goal TSH. Due on due Goal FOBT. Due on due Goal FIT. Due on due Goal Lipid panel. Due on due Goal Colonoscopy. Due on due Goal Influenza vaccin e. Due on due Goal Tdap due Goal FIT-DNA (Cologua rd). Due on due Goal Mammogram. Due on 0 due Goal TSH. Due on due Goal PHQ9/Depr/Suicid e Rsk Assessment. Due on due Goal FOBT. Due on due Goal Influenza vaccin e. Due on due Goal Diabetes screeni ng. Due on due Goal Lipid panel. Due on due Goal ECG. Due on due Goal Tdap due Goal FIT. Due on due Goal Colonoscopy. Due on due Goal COVID-19 Vaccine . Due on due Goal FIT-DNA ([facility] rd). Due on due Goal Lipid panel. Due on due Goal Colonoscopy. Due on due Goal Mammogram. Due on 0 due Goal Tdap due Goal Influenza vaccin e. Due on due Goal Diabetes screeni ng. Due on due Goal FIT. Due on due Goal TSH. Due on due Goal FOBT. Due on due Goal COVID-19 Vaccine . Due on due Goal ECG. Due on due Goal PHQ9/Depr/Suicid e Rsk Assessment. Due on due Goal FOBT. Due on due Goal Influenza vaccin e. Due on due Goal Diabetes screeni ng. Due on due Goal ECG. Due on due Goal PHQ9/Depr/Suicid e Rsk Assessment. Due on due Goal Tdap due Goal FIT. Due on due Goal TSH. Due on due Goal Mammogram. Due on 0 due Goal Colonoscopy. Due on due Goal FIT-DNA ([facility]olog[facility] rd). Due on due Goal COVID-19 Vaccine . Due on due Goal Lipid panel. Due on 023 due Goal ECG. Due on due Goal FIT. Due on due Goal Diabetes screeni ng. Due on due Goal Mammogram. Due on 0 due Goal Colonoscopy. Due on due Goal Influenza vaccin e. Due on due Goal Lipid panel. Due on due Goal COVID-19 Vaccine . Due on due Goal TSH. Due on due Goal FOBT. Due on due Goal Tdap due Goal FIT-DNA ([facility]olog[facility] rd). Due on due Goal PHQ9/Depr/Suicid e Rsk Assessment. Due on due Goal Diabetes screeni ng. Due on due Goal TSH. Due on due Goal FOBT. Due on due Goal Influenza vaccin e. Due on due Goal Mammogram. Due on 0 due Goal FIT. Due on due Goal ECG. Due on due Goal Colonoscopy. Due on due Goal Tdap due Goal FIT-DNA ([facility]olog[facility] rd). Due on due Goal PHQ9/Depr/Suicid e Rsk Assessment. Due on due Goal Lipid panel. Due on due Goal COVID-19 Vaccine . Due on due Goal TSH. Due on due Goal Influenza vaccin e. Due on due Goal Lipid panel. Due on due Goal Mammogram. Due on 0 due Goal PHQ9/Depr/Suicid e Rsk Assessment. Due on due Goal Tdap due Goal Diabetes screeni ng. Due on due Goal ECG. Due on due Goal Tdap due Goal TSH. Due on due Goal Diabetes screeni ng. Due on due Goal Lipid panel. Due on due Goal PHQ9/Depr/Suicid e Rsk Assessment. Due on due Goal Mammogram. Due on 0 due Goal Influenza vaccin e. Due on due Goal ECG. Due on due Goal Influenza vaccin e. Due on due Goal Tdap due Goal Urinalysis due Goal PHQ9/Depr/Suicid e Rsk Assessment. Due on due Goal Diabetes screeni ng. Due on due Goal TSH. Due on due Goal Mammogram. Due on 0 due Goal ECG. Due on due Goal Lipid panel. Due on due Goal Influenza vaccin e. Due on due Goal TSH. Due on due Goal Mammogram. Due on 0 due Goal Tdap due Goal Lipid panel. Due on due Goal ECG. Due on due Goal Suicide risk ass essment. Due on due Goal Urinalysis due Goal PHQ9. Due on due Goal Diabetes screeni ng. Due on due Goal ECG. Due on due Goal Diabetes screeni ng. Due on due Goal Suicide risk ass essment. Due on due Goal TSH. Due on due Goal Influenza vaccin e. Due on due Goal Mammogram. Due on 0 due Goal Tdap due Goal Urinalysis due Goal PHQ9. Due on due Goal Lipid panel. Due on due Goal Tdap due Goal Influenza vaccin e. Due on due Goal Lipid panel. Due on due Goal Mammogram. Due on 0 due Goal Suicide risk ass essment. Due on due Goal PHQ9. Due on due Goal Urinalysis due Goal ECG. Due on due Goal Diabetes screeni ng. Due on due Goal TSH. Due on due Goal Diabetes screeni ng. Due on due Goal PHQ9. Due on due Goal Mammogram. Due on 9 due Goal Suicide risk ass essment. Due on due Goal Tdap due Goal Pap/HPV testing. Due on due Goal Influenza vaccin e. Due on due Goal Urinalysis due Goal ECG. Due on due Goal TSH. Due on due Goal Lipid panel. Due on due Goal PHQ9. Due on due Goal Suicide risk ass essment. Due on due Goal ECG. Due on due Goal Urinalysis due Goal Influenza vaccin e. Due on due Goal Mammogram. Due on 9 due Goal TSH. Due on due Goal Diabetes screeni ng. Due on due Goal Lipid panel. Due on due Goal Tdap due Goal Pap/HPV testing. Due on due Goal Pap/HPV testing. Due on due Goal Tdap due Goal Diabetes screeni ng. Due on due Goal TSH. Due on due Goal PHQ9. Due on due Goal ECG. Due on due Goal Suicide risk ass essment. Due on due Goal Urinalysis due Goal Influenza vaccin e. Due on due Goal Mammogram. Due on 9 due Goal Lipid panel. Due on 024 due Goal Tdap due Goal Mammogram. Due on 9 due Goal Influenza vaccin e. Due on due Goal ECG. Due on due Goal Pap/HPV testing. Due on due Goal TSH. Due on due Goal Urinalysis due Goal Suicide risk ass essment. Due on due Goal Lipid panel. Due on 023 due Goal Diabetes screeni ng. Due on due Goal PHQ9. Due on due Goal Diabetes screeni ng. Due on due Goal Influenza vaccin e. Due on due Goal PHQ9. Due on due Goal Tdap due Goal Pap/HPV testing. Due on due Goal Urinalysis due Goal ECG. Due on due Goal TSH. Due on due Goal Lipid panel. Due on 023 due Goal Mammogram. Due on 9 due Goal Suicide risk ass essment. Due on due Goal ECG. Due on due Goal Diabetes screeni ng. Due on due Goal Mammogram. Due on 9 due Goal PHQ9. Due on due Goal Lipid panel. Due on 023 due Goal Influenza vaccin e. Due on due Goal Tdap due Goal Suicide risk ass essment. Due on due Goal TSH. Due on due Goal Pap/HPV testing. Due on due Goal Suicide risk ass essment. Due on due Goal TSH. Due on due Goal Influenza vaccin e. Due on due Goal Mammogram. Due on 9 due Goal Tdap due Goal Diabetes screeni ng. Due on due Goal Pap/HPV testing. Due on due Goal Lipid panel. Due on due Goal PHQ9. Due on due Goal TSH. Due on due Goal Diabetes screeni ng. Due on due Goal Suicide risk ass essment. Due on due Goal Pap/HPV testing. Due on due Goal Mammogram. Due on 9 due Goal Tdap due Goal PHQ9. Due on due Goal Lipid panel. Due on due Goal Influenza vaccin e. Due on due Goal Pap/HPV testing. Due on due Goal Influenza vaccin e. Due on due Goal PHQ9. Due on due Goal Suicide risk ass essment. Due on due Goal Tdap due Goal Diabetes screeni ng. Due on due Goal Mammogram. Due on 9 due Goal TSH. Due on due Goal Lipid panel. Due on due Goal Lipid panel. Due on due Goal PHQ9. Due on due Goal Pap/HPV testing. Due on due Goal Mammogram. Due on 9 due Goal Influenza vaccin e. Due on due Goal Suicide risk ass essment. Due on due Goal TSH. Due on due Goal Mentl Hlth/Subst Abuse Scrn-ie. optl [employer]. Due on due Goal Mentl Hlth/Subst Abuse Scrn-ie. optl [employer]. Due on due Goal Mammogram. Due on 6 due Goal BMP fasting. Due on due Goal PHQ9. Due on due Goal Suicide risk ass essment. Due on due Goal Influenza vaccin e. Due on due Goal Influenza vaccin e. Due on due Goal Suicide risk ass essment. Due on due Goal PHQ9. Due on due Goal BMP fasting. Due on 014 due Goal Mentl Hlth/Subst Abuse Scrn-ie. optl [employer]. Due on due Goal Mammogram. Due on 6 due Goal Suicide risk ass essment. Due on due Goal PHQ9. Due on due Goal Influenza vaccin e. Due on due Goal BMP fasting. Due on due Goal Mammogram. Due on due Goal Mentl Hlth/Subst Abuse Scrn-ie. optl [employer]. Due on due Goal Suicide risk ass essment. Due on due Goal Influenza vaccin e. Due on due Goal Mentl Hlth/Subst Abuse Scrn-ie. optl [employer]. Due on due Goal Mammogram. Due on due Goal BMP fasting. Due on due Goal PHQ9. Due on due Goal Mammogram. Due on due Goal Suicide risk ass essment. Due on due Goal Mentl Hlth/Subst Abuse Scrn-ie. optl [employer]. Due on due Goal BMP fasting. Due on due Goal Influenza vaccin e. Due on due Goal PHQ9. Due on due Goal Mammogram. Due on due Goal BMP fasting. Due on due Goal Influenza vaccin e. Due on due Goal Suicide risk ass essment. Due on due Goal Mentl Hlth/Subst Abuse Scrn-ie. optl [employer]. Due on due Goal TSH. Due on due Goal PHQ9. Due on due Goal Mammogram. Due on due Goal Suicide risk ass essment. Due on due Goal BMP fasting. Due on due Goal PHQ9. Due on due Goal Mentl Hlth/Subst Abuse Scrn-ie. optl [employer]. Due on due Goal Influenza vaccin e. Due on due Goal Mentl Hlth/Subst Abuse Scrn-ie. optl [employer]. Due on due Goal Influenza vaccin e. Due on due Goal Suicide risk ass essment. Due on due Goal BMP fasting. Due on due Goal PHQ9. Due on due Goal Mammogram. Due on due Goal Mammogram. Due on due Goal Influenza vaccin e. Due on due Goal Suicide risk ass essment. Due on due Goal BMP fasting. Due on due Goal Mentl Hlth/Subst Abuse Scrn-ie. optl [employer]. Due on due Goal PHQ9. Due on due Goal PHQ9. Due on due Goal Influenza vaccin e. Due on due Goal Mammogram. Due on due Goal BMP fasting. Due on due Goal Suicide risk ass essment. Due on due Goal Mentl Hlth/Subst Abuse Scrn-ie. optl [employer]. Due on due Goal Pap/HPV testing. Due on due Goal BMP fasting. Due on due Goal BMP fasting. Due on due Goal Pap/HPV testing. Due on due Goal BMP fasting. Due on due Goal Mammogram. Due on due Goal Pap/HPV testing. Due on due Goal Mammogram. Due on 5 due Goal Tdap due Goal BMP fasting. Due on due Goal Pap/HPV testing. Due on due Goal BMP fasting. Due on due Goal BMP fasting. Due on due Goal BMP fasting. Due on due Goal BMP fasting. Due on due Goal PAP. Due on due Goal TD Vaccine. Due on 14 due Goal BMP fasting. Due on due Referral Ordered: Xray, Foot, Complete, 3 Views Right foot Appointment date/timeframe: 10/06/2024 ordered Referral Ordered: Xray, Chest 2 Views NA chest ordered Referral Ordered: U/S, Thyroid N/A thyroid ordered Referral Ordered: CT, Soft Tissue Neck, W Contrast N/A neck ordered Referral Ordered: U/S, Thyroid N/A neck ordered Referral Ordered: Limited U/S Left axilla ordered Patient Education benzonatate 200 mg caps ule completed Patient Education Xanax 1 mg tablet compl eted Future Order: Radiology Order Xr ay, Foot, Complete, 3 Views Right foot ([id number]), Body Site: foot, Scheduled for: , Appointment on: , Scheduled for: Sent Future Order: Radiology Order Xr ay, Chest 2 Views NA chest ([id number]), Body Site: chest, Sent on: Sent Future Order: Radiology Order CT , Abdomen, Pelvis w/o contrast Left abdomen/pelvis ([id number]), Body Site: abdomen/pelvis, Sent on: Sent Future Order: Radiology Order U/ S, Thyroid N/A thyroid ([id number]), Body Site: thyroid, Sent on: Sent Future Order: Radiology Order CT , Soft Tissue Neck, W Contrast N/A neck ([id number]), Body Site: neck, Sent on: Sent Future Order: Radiology Order U/ S, Thyroid N/A neck ([id number]), Body Site: neck, Sent on: Sent Future Order: Lab Order Tissue ( Biopsy/Histology) (SURGICAL), Sent on: Sent Future Order: Lab Order Saline P rep ([id number]), Sent on: Sent Future Order: Lab Order BENJI Othe r ([id number]), Sent on: Sent History Of Present Illness Encounter Date Complaint History Of Prese nt Illness CMOC R Foot Pain *Review medications Chief Compla int:The patient presents with concerns regarding cholesterol management, thyroid function, ADHD and anxiety, hypertension, menopausal symptoms, and vulvovaginal candidiasis.Cholesterol Management:The patient reports actively managing her cholesterol through diet and exercise, avoiding medications. She describes her dietary changes as avoiding unnatural foods and focusing on a high-protein diet with reduced refined sugars and carbohydrates. She incorporates daily physical activities such as walking or hiking for at least 20 minutes.Thyroid Function:The patient is currently taking [place] Thyroid and reports good control of her symptoms with this regimen. She mentions sometimes adjusting the dose but is presently taking one tablet daily.ADHD and Anxiety:The patient has a history of ADHD and has previously been prescribed Adderall, which she discontinued due to adverse effects resembling a caffeine high followed by a crash. She expresses a preference for avoiding stimulants as they exacerbate her anxiety, which she feels is linked to her ADHD. She is open to exploring non-stimulant medication options.Hypertension:The patient is on lisinopril and hydrochlorothiazide but reports issues with blood pressure variability. She describes an acute drop in blood pressure after taking the medication, followed by a significant rise. She has been self-adjusting the dose to manage these fluctuations.Menopausal Symptoms:The patient reports experiencing symptoms suggestive of menopause, including hot flashes and mood changes, such as episodes of anger. She has a history of a partial hysterectomy but retains her ovaries.Vulvovaginal Candidiasis:The patient suspects a yeast infection following a recent gynecological exam, reporting symptoms of itchiness and redness. She requests Diflucan for treatment, indicating it as her usual medication for similar past episodes.Medication Review:The patient confirms ongoing use of several medications, including cyclobenzaprine for muscle tension, omeprazole for gastric reflux as needed, trazodone for sleep, and Xanax for anxiety related to claustrophobia, taken as needed. She denies any new side effects or issues with these medications. *Telemedicine This telemedicin e visit was performed with both audio and video support.Ashley has recently returned to [place] after a six-month period of traveling to and from [place] with her family. She is here today for a medication review to ensure her prescriptions are current. Ashley indicates that she has discontinued the use of albuterol and has not been prescribed Doxepin for some time. She reports that her cholesterol levels were previously found to be slightly elevated, although she is not taking atorvastatin at this time.Ashley is managing high blood pressure and has adjusted her Lisinopril Hydrochlorothiazide regimen to half the dose in the morning and the remaining half in the evening. She confirms that she is not on montelukast. With a diagnosis of Cathryn's, Ashley has experienced hair thinning, which prompted her to switch to [employer] thyroid. She continues to take Omeprazole at a dose of 40 mg twice daily and Trazodone 150 mg at night. Additionally, Ashley has vitamin D supplements available for use.For muscle relaxation, Ashley takes Cyclobenzaprine 10 mg as needed, with the frequency depending on her level of physical activity. She notes that she does not require Zoloft at present but continues with her daily Xanax intake, primarily at night, which aids in her sleep and assists in managing her PTSD symptoms. Please see assessment and plan for more detail and discussion. * Subjective:The p atient, Kendal Mulligan, presents as an established patient with a history of a biopsy that revealed a basal cell carcinoma on her right upper back. The biopsy was performed by Dr. Santana in [place], [place]. Ashley reports that the lesion measures 1.2 centimeters, with a treated diameter including margins of 2 centimeters. She states that she has no prior history of skin cancer.Ashley expresses concerns about the potential for developing additional skin cancers and requests further information on the differences between basal cell carcinoma and melanoma. Additionally, she seeks guidance on wound care, specifically regarding the advantages of maintaining a moist wound environment versus allowing the formation of a dry scab.Objective:Physical examination findings:- Healing biopsy wound on the right upper back, lesion size 1.2 centimeters, treated diameter with margins 2 centimeters.Diagnostic test results:- Biopsy showed basal cell carcinoma.Assessment & Plan:1. Basal Cell Carcinoma (BCC) - Right Upper Back-Biopsied by linen room supervisor in [place] as BCC. - Lesion measured at 1.2 cm.- Treatment area including margins set at 2 cm. - Treatment: Electrodessication and curettage (ED&C) successfully completed. - Post-procedure care: Maintain hypafix dressing for 24-72 hours; apply Vaseline and cover with a Band-Aid to promote healing; disregard the concept of wound breathing. - Follow-up: Patient is advised to be vigilant for signs of BCC recurrence and to schedule regular dermatological examinations. Any new or suspicious skin lesions should be reported immediately.2. Skin Cancer Risk and Prevention- Patient education: Reviewed the heightened risk for subsequent skin cancers following a BCC diagnosis. Emphasized the necessity of routine skin surveillance and prompt reporting of any unusual skin changes.- Preventative measures: Strongly recommended the adoption of comprehensive sun protection strategies, including the application of sunscreen, wearing sun-protective attire, and minimizing sun exposure during peak hours.3. Pharmacy Preference- The patient has designated [facility] as the pharmacy of choice for dispensing future prescriptions.Follow-up:- The patient is instructed to return for regular skin evaluations to monitor for potential BCC recurrence or the emergence of new skin concerns. *UTI Days since onset : 3-4 daysSymptoms:[X ] burning with urination - only once[X ] urgency[X ] frequency [ ] cloudy urine[ ] urine with strong odor[X ] back pain - both sides[ ] flank pain[x ] chills[ ] abnormal discharge[x ] abnormal vaginal odor[x] vaginal itchingLast UTI: at least a yearAny treatment(s) tried: No *Seasonal allergies Patient has been having really bad allergies and takes an OTC allergy pill for this. She feels like her ears have been full and would like them checked out. *Telemedicine This telemedicin e visit was performed with both audio and video support.Patient has anxiety and is here today to discuss treatment. Denies panic attacks. Anxiety described as sense of increased worry with frequent perseverating thoughts. Frequently impacts sleep due to racing thoughts.Patient has dealt with GERD and is currently being treated with medication to decreased acidity. Symptoms are generally controlled. Patient denies hematochezia or melena.Patient has HTN currently on antihypertensive therapy. Blood pressure has been on average well controlled. Tolerating the medication without side effect. Denies chest pain, shortness of breath, dizziness or lightheadedness.Patient presents with ADHD that is currently well controlled. Currently being treated with Adderall. Doing well in school/work. Better able to stay on focused, complete tasks, and interact. Denies hypertension, weight loss, appetite suppression or tremulousness. Compliant with medications.Please see assessment and plan for more detail and discussion. *Med Review Patient presents with a history of ADHD that is currently well controlled. Currently being treated with Adderall. Doing well in school/work. Better able to stay on focused, complete tasks, and interact. Denies hypertension, weight loss, appetite suppression or tremulousness. Compliant with medications.. Please see assessment and plan for more detail and discussion. *Medication Review Patient has a nxiety and is here today to discuss treatment. Denies panic attacks. Anxiety described as sense of increased worry with frequent perseverating thoughts. Frequently impacts sleep due to racing thoughts.. History of hypothyroidism currently on thyroid replacement. Last thyroid studies were drawn some time ago. Tolerating the medication well without side effect. Denies change in skin or hair, weight loss or weight gain, or heat/cold intolerance. Normal bowel and bladder. Level of energy is okay.. Patient presents with a history of ADHD that is currently well controlled. Currently being treated with Adderall. Doing well in school/work. Better able to stay on focused, complete tasks, and interact. Denies hypertension, weight loss, appetite suppression or tremulousness. Compliant with medications.. Patient has a history of insomnia and is currently being treated with medication. Symptoms are currently okay controlled. Reports difficulty falling/staying asleep. No history to suggest sleep apnea.. Please see assessment and plan for more detail and discussion. * CC: Follow upHPI : Patient presents for follow up for Cheilitis. She has stopped using the chap-stick and started using Vaseline and Aquaphor since her last visit but they are getting worse. She is here to see what is recommended and what she can do to helpROS: Any pertinent ROS will be noted in HPI or A/PPhysical exam:Exam: FocusedAreas examined: see A/P for sites examinedAssessment/Plan: # Cheilitis05/12/2022Exam: Chapped appearance on the lip(s), [ x ] upper [x ] lower -Notes: Suspect ACD. She will stop using the chapstick melaleuca and will use Vaseline and Aquaphor instead.[ x ] Discussed patch testing [ ] Will schedule patch testing. Will patch test to: [ ] ACDS [ ] Bakery [ ] Cosmetic [ ] Eyelid [ ] Pediatric [ ] Other-Topical medication rx: [ x ] Hydrocortisone [ ] Tacrolimus oint [ ] Triamcinolone [ ] Other- *Counseled patient about risk of atrophy with topical steroids-Problem areas: -Suspicious allergens: Chap stick melaleuca-Atopic history: -Notes: 05/20/2022Exam: Chapped appearance on the lip(s), [ x ] upper [x ] lower -stops using the chapstick and has not noticed improvement yet but it has only been a week-eRx: hydrocortisone 2.5% [id number]/24/2020:Exam: erythema/scaling on vermilion lips extending a couple mm onto cutaneous lips [ x ] Discussed patch testing[ x ] Will schedule patch testing. Will patch test to: [ x ] ACDS [x ] Bakery [ ] Cosmetic [ ] Eyelid [ ] Pediatric [ ] Other-Assessment: -Problem areas: lips only -Suspicious allergens: toothpaste, food, aquaphor-Atopic history: -Notes: She has stopped using the chapstick and started using Vaseline and Aquaphor since her last visit but they are getting worse. There was a miscommunication because she did not use the hydrocortisone ointment on her lips, she thought it was for the areas where she had her biopsies. Bacterial culture today. She stated she took a course of antibiotics a couple of weeks ago for a cold and it didn't help; got worse during that time. Recommend she change her toothpaste to cleure, stop using Aquaphor and only use Vaseline and start using the hydrocortisone ointment. She's moving to [place] in a couple months. RTC: *Fluency software was used in the dictation of this medical note and, as such, minor errors in translation and grammar may be present.[ x ] Beatrice Shell [ ] Maida Tejeda [ ] Maria C No [ ] Michelle Mann MA acted as scribe for documentation of my assessment and plan. I have reviewed the A/P and have made changes as needed. * CC: LesionsHPI: Patient presents for follow up on her moles and to have them removed today. right eye and posterior left neck.ROS: Any pertinent ROS will be noted in HPI or A/PPhysical exam:Exam: FocusedAreas examined: see A/P for sites examinedAssessment/Plan: # Neoplasm of uncertain behavior of skin Exam: see below Procedure: Tangential skin biopsy Location, size, ddx:1. right medial canthus, 3 mm, nevus, tag, r/o other, skin colored papule2. left posterior neck, 5 mm, nevus, tag, r/o other, brown fleshy papule Plan: Procedure note/Counseling: Presumed diagnosis was explained to patient and biopsy was recommended for diagnostic purposes. Verbal consent was obtained. The biopsy site was cleansed with alcohol and anesthetized with lidocaine with epinephrine and bicarb.[ x ] Flexible blade [ ] 15 blade [ ] Scalpel used to obtain tangential section of tissue[ x ] Aluminum chloride [ ] Hyfrecator used for hemostasis# Cheilitis05/12/2022Exam: Chapped appearance on the lip(s), [ x ] upper [x ] lower -Notes: Suspect ACD. She will stop using the chapstick melaleuca and will use Vaseline and Aquaphor instead.[ x ] Discussed patch testing [ ] Will schedule patch testing. Will patch test to: [ ] ACDS [ ] Bakery [ ] Cosmetic [ ] Eyelid [ ] Pediatric [ ] Other-Topical medication rx: [ ] Hydrocortisone [ ] Tacrolimus oint [ ] Triamcinolone [ ] Other- *Counseled patient about risk of atrophy with topical steroids-Problem areas: -Suspicious allergens: Chap stick melaleuca-Atopic history: -Notes: 05/20/2022Exam: Chapped appearance on the lip(s), [ x ] upper [x ] lower -stops using the chapstick and has not noticed improvement yet but it has only been a week-eRx: hydrocortisone 2.5% ointmentRTC: *Fluency software was used in the dictation of this medical note and, as such, minor errors in translation and grammar may be present.[ x ] Beatrice Shell [ ] Maida Tejeda [ ] Maria C No [ ] Michelle Mann MA acted as scribe for documentation of my assessment and plan. I have reviewed the A/P and have made changes as needed. * * CC: Skin checkHP I: Patient presents for evaluation of concerning lesions on the face, back and scattered elsewhere throughout. She has a mole on the back of her neck that irritates her because it will rub on the back of her clothing or other necklaces. She also has a lesion on the right inner eyelid has lesion that has gotten bigger and she would like to remove it. 2.Patient has dry lips for the past two months but this has never been a problem in the past. She has not switched any medications recently. She uses a regular chap-stick.ROS: Any problems with lidocaine injections in the past? NoAny other pertinent ROS will be noted in HPI, histories, or A/PHistories:History of skin cancer? NoHistory of skin cancer in immediate family members? NoRoughly how many times have you used a tanning bed? NoDo you wear sunscreen? YesPhysical exam:Exam: CompleteAreas examined: Full body-head, neck, trunk, extremitiesAll of the above sites were normal/unremarkable except per A/P:Assessment/Plan: # Solar lentigines# Seborrheic keratoses# Benign melanocytic neviExam: Puente lentiginous macules, puente stuck on papules, benign appearing brown nevi on the face, neck, trunk and extremities.-Notes: [x ] Reassurance provided regarding the benign appearance. Instructed patient to call if they notice any ugly duckling lesions or any lesions that are growing/changing out of proportion to others.[ ] Lesions to monitor: [ ] Cryo [ ] Counseled on using a broad spectrum SPF30+ sunscreen and sun protective clothing# Frazier angiomasExam: Red angioma(s) on the trunk-Notes: [ x] Reassurance[ ] Treated with hyfrecator. # treated: # CheilitisExam: Chapped appearance on the lip(s), [ x ] upper [x ] lower -Notes: Suspect ACD. She will stop using the chapstick melaleuca and will use Vaseline and Aquaphor instead.[ x ] Discussed patch testing [ ] Will schedule patch testing. Will patch test to: [ ] ACDS [ ] Bakery [ ] Cosmetic [ ] Eyelid [ ] Pediatric [ ] Other-Topical medication rx: [ ] Hydrocortisone [ ] Tacrolimus oint [ ] Triamcinolone [ ] Other- *Counseled patient about risk of atrophy with topical steroids-Problem areas: -Suspicious allergens: Chap stick melaleuca-Atopic history: -Notes: RTC:*Fluency software was used in the dictation of this medical note and, as such, minor errors in translation and grammar may be present.[ ] Beatrice Shell [ ] Maida Tejeda [ ] Maria C No [ ] Michelle Mann MA acted as scribe for documentation of my assessment and plan. I have reviewed the A/P and have made changes as needed. *Irlanda Edmonds present s to office w/co cold/URI sx. Recent travel: noKnown ill contacts/exposures to strep/flu/COVID: noHx of asthma or respiratory disorders: noSYMPTOMS: dry cough, shortness of breath, ear pain/pressure (bilat)Duration of symptoms: about 1 weekOTC medications tried: nothing yetShe states that it feels as though her chest is full of fluid. The patient denies a fever, chills, nausea, or purulent sputum. ROS was negative unless otherwise stated in the HPI. *Physical Patient presents for a general physical exam. Patient is up to date on vaccines. Health screening: Discussed screening intervals and if/when patient had their last screening. Please see assessment and plan or discussion on their screening needs and interval.We discussed each chronic condition in detail along with other more acute concerns. Please see assessment and plan for more details.. Patient presents with complaints of abdominal pain. Abdominal pain is located diffusely. Patient denies blood in the stool, blood in the urine, or fever. Patient has tried OTC remedies without relief. Patient has not had recent abdominal surgery. Pain in LUQ. No change in stool. Has had a hx of diverticulitis.Patient has a history of hyperlipidemia. Patient is currently being treated with statins. Tolerating medication well without adverse side effects. History of comorbidities that warrant treatment of cholesterol. Has been on cholesterol-lowering medication for a few years. Denies chest pain or shortness of breath.Patient has a history of vitamin-D deficiency. Currently being treated with vitamin D replacement. Tolerating medication well. No adverse side effects. Tries to get plenty of sunshine.Patient with known history of asthma. Symptoms are usually well controlled. Has required use of albuterol on occasion. Patient has been able to identify asthma triggers.History of HTN currently on antihypertensive therapy. Blood pressure has been on average well controlled. Tolerating the medication without side effect. Denies chest pain, shortness of breath, dizziness or lightheadedness.Patient has a history of insomnia and is currently being treated with medication. Symptoms are currently okay controlled. Reports difficulty falling/staying asleep. No history to suggest sleep apnea.Patient has anxiety and is here today to discuss treatment. Denies panic attacks. Anxiety described as sense of increased worry with frequent perseverating thoughts. Frequently impacts sleep due to racing thoughts. Sep-10-2021 *Migraines/headaches Patient her e for migraines/headaches for about 1 month. OTC medication works for a short while. Sleeping and being in a dark room helps. Has been complaining of some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 instructions provided. 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 Re filled medication. Change in trazodone dose. Trial of terbinafine for ear eczema Related to Annual physical exam She will start Dermo tic drops as directed, if there is no improvement with dermoid recommend trial of topical clotrimazole. Limits Q-tip use to one time per week only Related to Dermatitis of both ear canals Differential diagnos is for her ear pain including infection, otitis media, otitis externa, TMJ, mastoiditis. Suspect her symptoms secondary to dermatitis recommend treatment with Dermotic Related to Otalgia of both ears Take antibiotics as prescribed. Trial of clobetasol Related to Other chronic sinusitis Take antibiotics as prescribed. Blood work today. Related to Left otitis media, unspecified otitis media type Refilled medications . Referral to physical therapy for shoulder pain Related to Other insomnia Refer for ultrasound . Trial of Lyrica. Continue anti-inflammatories Related to Left axillary pain Blood work today. Start Mobic da michaela. Related to Pain in left axilla Suspect secondary to infection however if she is not experiencing reduction in symptoms she is instructed to contact clinic for further evaluation and workup. She understands the importance of followup Related to Breast pain, left Recommend starting B actrim DS one tablet 2 times per day for the next 7-10 days. She is instructed to monitor for resolution of the papule on her left nipple as well as left breast pain. Discussed differential diagnosis including cellulitis, mastitis, inflammatory breast disease. There is no improvement with antibiotic treatment she is discharged to call the clinic in the next one to 7 days, would recommend further evaluation with diagnostic mammogram, referral to general surgery. Related to Nipple infection Use topical compound ed cream. Followup if not improving. Related to Intertrigo Continue with health y lifestyle choices. Followup annually. Routine blood work today. Related to Annual physical exam Blood work today. Negative mono. Related to Chronic fatigue Follow up if not improving Relat ed to Lymphadenopathy Use Xanax only as needed. Relate d to Anxiety attack Continue with Paxil. Recommend staying off of work for another 2 weeks Related to Generalized anxiety disorder Take medication as p rescribed. Follow up if not improving. Related to Bacterial vaginosis Do not drive under t he influence of benzodiazepines Related to Panic attack Increase Paxil dose. Related to Generalized anxiety disorder Call to schedule a m ammogram. follow up annually or sooner as needed Related to Annual physical exam Use steroid cream as prescribed. Followup if not improving. Related to Dermatitis Take medication as p rescribed. Taken on a daily basis. Followup for side effects or other concerns. Followup in 3 months otherwise fine Related to Generalized anxiety disorder Prescribe medications Call if symptoms persist Review medication side effects Order labs/studies Renew medications Review medications Assessments Type Assessment Date assessment Congenital rearfoot varus assessment Gastrocnemius equinus of left lo wer extremity assessment Mendez neuroma of right foot Oct Patient Care Teams Name Effective Dates (start - stop) Status Members No Information
--- OUTSIDE RECORDS SUMMARY | 2025-02-01 12:31 | XMS_ITS | Clinical Summary ---
Author Organization [facility] Address [address] [place] [address] Care Team Providers Care Preliminary School Psychologist Name Role Phone Unavailable Primary Care Provider Unavailabl e Allergies Active Allergy Reactions Criticality Noted Date Comments Sulfa (Sulfonamide Antibiotics) Hives,Itching,Rash High 11/25/2021 Medications meloxicam (MOBIC) 15 mg tablet 07/19/2021 Active valACYclovir (Valtrex) 500 mg tablet 08/14/1998 Active Active Problems Problem Noted Date Diagnosed Date Pain in thoracic spine 11/25/2021 Social History Tobacco Use Types Packs/Day Years Used Date Smoking Tobacco: Never Comments Unknown Sex and Gender Information Value Date Recorded Sex Assigned at Not on file 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 Gender Identity Not on file Sexual Orientation Not on file Last Filed Vital Signs Vital Sign Reading Time Taken Comments Blood Pressure 162/98 11/25/2021 8:36 AM CDT Pulse 87 11/25/2021 8:36 AM CDT Temperature - - Respiratory Rate - - Oxygen Saturation 99% 11/25/2021 8:36 AM CDT Inhaled Oxygen Concentration - - Weight 94.3 kg (208 lb) 11/25/2021 8:36 AM CDT Height - - Body Mass Index - - Plan of Treatment Health Maintenance Due Date Last Done Comments DTAP/TDAP/TD VACCINES (1 - Tdap) 1991 HEPATITIS B VACCINES (1 of 3 - 19+ 3-dose series) 04/1991 HPV/Cotest (21-29) 1993 CERVICAL CANCER SCREENING 2002 HPV/Cotest (30-65) 2002 PAP SMEAR 2002 BREAST CANCER SCREENING 12/16/2013 12/16/2012 COLORECTAL SCREENING 2017 Colorectal Cancer Screening 2017 FIT-DNA Q 3 years 2017 FIT/FOBT Q 1 year 2017 Flex Sig/CT Colonography Q 5 years 2017 ZOSTER VACCINE (1 of 2) 2022 INFLUENZA VACCINE (#1) 2024 Insurance [facility] [employer]
--- OUTSIDE RECORDS SUMMARY | 2025-02-01 12:31 | XMS_ITS | Referral Summary ---
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
== END 2025-02-01 10:47 | disposition home or self-care (01) ==
LOC: ANHIMG 10:50
PROVIDERS: PCP Family Medicine; Visit Provider Obstetrics & Gynecology Gynecology
DX: R92.8 Other abnormal and inconclusive findings on diagnostic imaging of breast (principal); N63.10 Unspecified lump in the right breast, unspecified quadrant
CPT/HCPCS: 77061; 77065; G0279

== ENCOUNTER 2025-08-04 13:58 | Outpatient (CLI) | payer BC, SELFPAY ==
--- OUTSIDE RECORDS SUMMARY | 2025-08-04 14:01 | XMS_ITS | Clinical Summary ---
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
--- OUTSIDE RECORDS SUMMARY | 2025-08-04 14:01 | XMS_ITS | Clinical Summary ---
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
[2025-08-04 18:28] LABS: Hematocrit 40.3 % (37.0-47.0); Hemoglobin 13.1 g/dL (12.0-15.0); Immature Granulocyte Percent A 0.3 % (0-0.5); Lymphocytes Absolute Auto 1.34 K/mm3 (0.9-3.2); Mean Corpuscular HGB Conc 32.5 g/dl (32-36); Mean Corpuscular Hemoglobin 29.4 pg (26-34); Mean Corpuscular Volume 90.4 fl (80-100); Nucleated Red Blood Cells Absolute Auto 0.000 K/mm3 (0.0-0.012); Nucleated Red Blood Cells Perc 0.0 % (0.0-0.2); Platelet Count Result 349 k/mm3 (150-375); Red Blood Count 4.46 M/mm3 (4.2-5.4); White Blood Count 7.8 K/mm3 (4.5-10.0)
[2025-08-04 18:36] LABS: Alanine Aminotransferase 23 U/L (6-35); Albumin Level 4.2 g/dL (3.5-5.1); Alkaline Phosphatase 89 U/L (38-126); Anion Gap 7 mmol/L (4-12); Aspartate Amino Transferase 34 U/L (14-36); Bilirubin,Total 0.2 mg/dL (0.2-1.3); Blood Urea Nitrogen 14 mg/dL (7-17); Calcium 9.2 mg/dL (8.4-10.2); Carbon Dioxide 26 mmol/L (22-30); Chloride 105 mmol/L (98-107); Estimated Glomerular Filt Rate 59; Glucose 107 mg/dL (65-110); Magnesium 2.1 mg/dL (1.6-2.3); Potassium 4.1 mmol/L (3.4-5.0); Sodium 138 mmol/L (137-145); Total Protein 7.3 g/dL (6.3-8.2)
[2025-08-04 18:45] LABS: NT Pro B Type Natriuretic Pept 89 pg/mL (19.9-100)
== END 2025-08-04 13:59 | disposition home or self-care (01) ==
LOC: ANHGOSHLAB 13:58
PROVIDERS: PCP Family Medicine; Visit Provider Nurse Practitioner Family
DX: E78.5 Hyperlipidemia, unspecified (principal); R73.03 Prediabetes; I10 Essential (primary) hypertension; R06.02 Shortness of breath; R60.9 Edema, unspecified
CPT/HCPCS: 36415; 80053; 83735; 83880; 85025